=== PATIENT | male | born 1980 | race Caucasian/White ===

== ENCOUNTER 2018-06-20 08:37 | Inpatient (IN) | payer OTHER ==
[~2018-06-20] VITALS: Ht 167.6 cm; Wt 72.2 kg
[2018-06-20] VITALS (35 sets, daily range): BP systolic 100–123; BP diastolic 59–82; PULSE 65–87; TEMP 36.4–36.9; O2SAT 95–100; Ht 167.6 cm; Wt 72.2 kg
[2018-06-20] MEDS ORDERED: SODIUM CHLORIDE 0.9% 1000ML 1,000 ML IV STA (08:51)
[2018-06-20] MEDS ORDERED: PANTOprazole INJ 40 MG in DEXTROSE 5% 100ML IV SCH (09:30)
[2018-06-20] MEDS ORDERED: PANTOprazole INJ 80 MG in DEXTROSE 5% 100ML IV ONE (09:30)
[2018-06-20 09:33] LABS: ISTAT CREATININE 0.5 mg/dl (0.6-1.3); ISTAT IONIZED CALCIUM 1.18 mmol/l (1.12-1.32); ISTAT POTASSIUM 3.8 mEq/L (3.3-5.0)
[2018-06-20 09:46] LABS: INR 1.1 (0.9-1.1)
[2018-06-20 09:47] LABS: PTT PATIENT 19.1 SECONDS (21.0-31.0)
[2018-06-20 09:48] LABS: HEMOGLOBIN 3.9 g/dL (14.0-18.0); MEAN CELL VOLUME 57.3 fL (80-100); MEAN CORPUSCULAR HGB CONC 24.4 g/dl (32-36); PLATELET COUNT 439 K/uL (130-400); WHITE BLOOD COUNT 6.34 K/uL (4.8-10.8)
[2018-06-20 10:05] LABS: ALBUMIN 3.5 gm/dl (3.4-5.0); ALKALINE PHOSPHATASE 105 U/L (45-117); ALT/SGPT 13 U/L (12-78); AST/SGOT 9 U/L (15-37); BLOOD UREA NITROGEN 13 mg/dl (7-18); CALCIUM 8.2 mg/dl (8.5-10.1); CARBON DIOXIDE 23 mmol/L (21-32); CKMB < 1.0 ng/ml (0.5-3.6); CREATININE 0.59 mg/dl (0.60-1.40); GLUCOSE 81 mg/dl (70-99); LIPASE 73 U/L (73-393); POTASSIUM 3.7 mmol/L (3.5-5.1); SODIUM 140 mmol/L (136-145); TOTAL PROTEIN 7.2 gm/dl (6.4-8.2)
[2018-06-20] MEDS ORDERED: ONDANSETRON INJ 2 MG/ML 2 ML VIAL IV PRN (10:45)
[2018-06-20] MEDS ORDERED: POLYETHYLENE (MIRALAX) 17 GM PACK PO PRN (10:45)
[2018-06-20 10:50] LABS: BASO % 1.6 %; EOS % 9.8 %; EOS ABS # 0.62 K/uL (0-0.5); IG# 0.05 K/uL (0.00-0.02); LYMPH % 23.7 %; MONO % 7.9 %; NEUT % 56.2 %; NEUT ABS # 3.57 K/uL (1.4-6.5)
--- NOTE | 2018-06-20 11:06 | History and Physical ---
History & Physical Date & Time of Service: Jun 20, 2018 at 10:57 Chief Complaint: Gi Assessment Primary Care Physician: Isaías HA History of Present Illness Source: patient, hospital records 37 yo male with history of GI bleed in 2016 and psychiatric issues, currently incarcerated at [facility], presents to the ED with weakness, palor, Hb noted to be 3.9. Patient admits to about one week of melanotic stools, 1-2 times a day, stools more loose. Denies any abdominal pain. Prior to one week ago, he was having normal stools. Denies any vomiting, specifically denies hematemesis. In 2016 he said that he had melena and anemia requiring transfusion. The patient was supposed to get an EGD and colonoscopy but he went to custodial and never got follow up. Patient's vital signs were reasonable given how low his Hb was, HR in the 80's, blood pressure 100's systolic but then dipped down to 89 systolic. No symptoms such as light headedness. Patient said that he was taking Depakote and BuSpar for the past year but those medications were tapered off about one week ago. Not taking NSAIDs, no alcohol abuse since he is incarcerated. Past Medical/Surgical History Medical Problems: (1) Acute blood loss anemia (2) GI bleed (3) GI bleed Family History Mother - from throat cancer, she was a smoker Father - alive with diabetes Social History Smoking Status: Current Every Day Smoker Smokeless Tobacco Use: No Alcohol Use: none Drug Use: none Housing status: other (incarcerated) Allergies Coded Allergies: Penicillin G Benzathine (Unverified Allergy, Intermediate, , 06/20/18) Home Medications No Active Prescriptions or Reported Meds Review of Systems Constitutional: + weakness, + fatigue, No fever, No chills, No sweats, No weight loss Eyes: No worsening of vision, No eye pain, No redness, No discharge, No diplopia, No problem reported ENT: No hearing loss, No unusual epistaxis, No nasal symptoms, No sore throat, No tinnitus, No dental problems, No trouble swallowing, No problem reported Respiratory: No cough, No sputum, No wheezing, No shortness of breath, No dyspnea on exertion, No dyspnea at rest, No hemoptysis, No problem reported Cardiovascular: No chest pain, No orthopnea, No PND, No edema, No claudication , No palpitations, No problem reported Abdomen: + GI bleeding (melena 1-2x a day), No pain, No nausea, No vomiting, No diarrhea, No constipation, No problem reported Genitourinary - Male: No hematuria, No dysuria, No urinary frequency, No urinary urgency, No urinary hesitancy, No urinary retention, No urinary incontinence, No penile discharge, No lesions, No impotence, No problem reported Neurologic: No memory loss, No paralysis, No weakness, No numbness/tingling, No vertigo, No balance problems, No problem reported Psychiatric: No depression symptoms, No anhedonism, No anxiety, No insomnia, No substance abuse, No problem reported Endocrine: + fatigue, No excessive thirst, No excessive urination, No problem reported Hematologic / Lymphatic: No abnormal bleeding/bruising, No clotting problems, No swollen lymph nodes, No night sweats, No problem reported Integumentary: + color change (palor), No rash, No itch, No new/changing skin lesions, No bleeding, No problem reported Allergic / Immunologic: No environmental allergies, No seasonal allergies, No pet sensitivities, No food allergies, No hives, No frequent infections, No poor healing, No prolonged convalescence, No problem reported Physical Exam Vital Signs Date Time Temp Pulse Resp B/P (MAP) Pulse Ox O2 Delivery O2 Flow Rate FiO2 06/20/18 10:44 36.9 76 18 113/73 100 06/20/18 09:30 79 16 102/69 06/20/18 09:27 98 Room Air 06/20/18 08:54 83 06/20/18 08:51 36.8 85 16 103/68 100 Room Air General Appearance: WD/WN, no apparent distress Head: normocephalic, atraumatic Eyes: normal inspection, EOMI, sclerae normal, + pertinent finding (pale conjunctiva) ENT: normal ENT inspection, hearing grossly normal, pharynx normal Neck: supple, no adenopathy, no JVD, trachea midline Respiratory/Chest: chest non-tender, lungs clear, normal breath sounds, no respiratory distress, no accessory muscle use Cardiovascular: regular rate, rhythm, no edema, no gallop, no JVD, no murmur, normal peripheral pulses Abdomen/GI: normal bowel sounds, non tender, soft, no organomegaly Back: normal inspection, no CVA tenderness, no muscle spasm, normal range of motion Extremities/Musculoskelatal: normal inspection, no calf tenderness, normal capillary refill, no pedal edema, normal range of motion, pelvis stable 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, no motor/sensory deficits, alert, normal mood/affect, normal reflexes, oriented x 3 Skin: warm/dry, no rash, + pallor Lymphatic: no adenopathy Diagnostics Laboratory Results Results Past 24 Hours Test 06/20/18 09:13 06/20/18 09:18 Range/Units White Blood Count 6.34 4.8-10.8 K/uL Red Blood Count 2.79 4.7-6.1 M/uL Hemoglobin 3.9 14.0-18.0 g/dL Hematocrit 16.0 42-52 % Mean Corpuscular Volume 57.3 80-100 fL Mean Corpuscular Hemoglobin 14.0 25-34 pg Mean Corpuscular Hemoglobin Concent 24.4 32-36 g/dl Platelet Count 439 130-400 K/uL Neutrophils (%) (Auto) 56.2 % Lymphocytes (%) (Auto) 23.7 % Monocytes (%) (Auto) 7.9 % Eosinophils (%) (Auto) 9.8 % Basophils (%) (Auto) 1.6 % Neutrophils # (Auto) 3.57 1.4-6.5 K/uL Lymphocytes # (Auto) 1.50 1.2-3.4 K/uL Monocytes # (Auto) 0.50 0.11-0.59 K/uL Eosinophils # (Auto) 0.62 0-0.5 K/uL Basophils # (Auto) 0.10 0-0.2 K/uL Immature Granulocyte % (Auto) 0.8 % Immature Granulocyte # (Auto) 0.05 0.00-0.02 K/uL Giant Platelets 1+ Hypochromasia PRESENT Anisocytosis PRESENT Microcytosis PRESENT Ovalocytes 1+ Prothrombin Time 11.3 9.0-12.0 SECONDS Prothromb Time International Ratio 1.1 0.9-1.1 Activated Partial Thromboplast Time 19.1 21.0-31.0 SECONDS Partial Thromboplastin Ratio 0.7 Sodium Level 140 136-145 mmol/L Potassium Level 3.7 3.5-5.1 mmol/L Chloride Level 109 98-107 mmol/L Carbon Dioxide Level 23 21-32 mmol/L Anion Gap 8.0 17.0 16-25 mmol/L Blood Urea Nitrogen 13 7-18 mg/dl Creatinine 0.59 0.60-1.40 mg/dl Est Creatinine Clear Calc Drug Dose 151.6 ml/min Estimated GFR () 147.8 Estimated GFR (Non- 127.5 BUN/Creatinine Ratio 22.2 10-20 Random Glucose 81 70-99 mg/dl Calcium Level 8.2 8.5-10.1 mg/dl Total Bilirubin 0.3 0.2-1 mg/dl Direct Bilirubin 0.1 0-0.2 mg/dl Aspartate Amino Transf (AST/SGOT) 9 15-37 U/L Alanine Aminotransferase (ALT/SGPT) 13 12-78 U/L Alkaline Phosphatase 105 45-117 U/L Total Creatine Kinase 27 39-308 U/L Creatine Kinase MB < 1.0 0.5-3.6 ng/ml Creatine Kinase MB Ratio 0-3.0 Troponin I < 0.015 0-0.045 ng/ml Total Protein 7.2 6.4-8.2 gm/dl Albumin 3.5 3.4-5.0 gm/dl Lipase 73 73-393 U/L Bedside Hemoglobin 5.4 14.0-18.0 g/dl Bedside Hematocrit 16 42-52 % Bedside Sodium 142 135-144 mEq/L Bedside Potassium 3.8 3.3-5.0 mEq/L Bedside Chloride 106 101-112 mEq/L Bedside Total CO2 23 24-31 mEq/l Bedside Blood Urea Nitrogen 12 7-18 mg/dl Bedside Creatinine 0.5 0.6-1.3 mg/dl Bedside Glucose (other) 85 70-99 mg/dl Bedside Ionized Calcium (Rojas) 1.18 1.12-1.32 mmol/l Normal EKG Impression Assessment and Plan 37 yo male with GI bleed, acute blood loss anemia - GI bleed with acute blood loss anemia hb 3.9, likely slow bleed since his HR is in 80's and BP preserved will transfuse 3 units PRBC's now Protonix drip strict NPO ED discussed with Dr. King, planning for scope this afternoon admit to telemetry - DVT prophylaxis: SCD due to bleed - Unknown psychiatric issues: was recently taken off of Depakote and Ray 35 minutes spent on admission Resuscitation Status full code VTE Prophylaxis Will order VTE Prophylaxis: Yes Reason for no VTE drug order: Contraindicated Additional Copies To Isaías HA
--- NOTE | 2018-06-20 11:07 | EMERGENCY ROOM VISIT NOTE ---
History Report prepared by Yahaira: Daniela Mattson Under the Supervision of: Dr. Daniel Alvarado M.D. First contact with patient: 08:39 Chief Complaint: GI ASSESSMENT Stated Complaint: GI ASSESSMENT Nursing Triage Summary: pt here with bloody stools x one week. pt denies any abd pains. pt is a very pale. hemoglobin was checked in january of this year and it was 8, not checked since. pt c/o headache History of Present Illness The patient is a 37 year old male who presents to the Emergency Room with complaints of persistent dark tarry stools starting 1 week ago. The patient presents to the ED by EMS from senior care. He has a history of GI bleed 2 years ago and required a transfusion. He has been feeling weak for a couple days. He felt nauseous today while standing. He has not had a scope before. Source of History: patient Onset: 1 week ago Position: other (rectal) Quality: other (dark tarry stool) Timing: other (persistent) Associated Symptoms: + nausea, + weakness Review of Systems See HPI for pertinent positives & negatives. A total of 10 systems reviewed and were otherwise negative. Past Medical & Surgical Medical Problems: (1) Acute blood loss anemia (2) GI bleed (3) GI bleed Family History No pertinent family history stated Social History Smoking Status: Current Every Day Smoker Housing Status: other (senior care) Current/Historical Medications No Active Prescriptions or Reported Meds Allergies Coded Allergies: Penicillin G Benzathine (Unverified Allergy, Intermediate, , 06/20/18) Physical Exam Vital Signs Date Time Temp Pulse Resp B/P (MAP) Pulse Ox O2 Delivery O2 Flow Rate FiO2 06/20/18 09:30 79 16 102/69 06/20/18 09:27 98 Room Air 06/20/18 08:54 83 06/20/18 08:51 36.8 85 16 103/68 100 Room Air Physical Exam GENERAL: Awake, alert, pale-appearing, in no acute distress HENT: Normocephalic, atraumatic. Oropharynx unremarkable. EYES: Normal conjunctiva. Sclera non-icteric. NECK: Supple. No nuchal rigidity. FROM. No JVD. RESPIRATORY: Clear to auscultation. CARDIAC: Regular rate, normal rhythm. Extremities warm and well perfused. Pulses equal. ABDOMEN: Soft, non-distended. No tenderness to palpation. No rebound or guarding. No masses. RECTAL: Black tarry, heme positive. MUSCULOSKELETAL: Chest examination reveals no tenderness. The back is symmetrical on inspection without obvious abnormality. There is no CVA tenderness to palpation. No joint edema. LOWER EXTREMITIES: Calves are equal size bilaterally and non-tender. No edema. No discoloration. NEURO: Normal sensorium. No sensory or motor deficits noted. SKIN: No rash or jaundice noted. Medical Decision & Procedures Laboratory Results 06/20/18 09:13 Red Blood Count 2.79, Mean Corpuscular Volume 57.3, Mean Corpuscular Hemoglobin 14.0, Mean Corpuscular Hemoglobin Concent 24.4, Neutrophils (%) (Auto) 56.2, Lymphocytes (%) (Auto) 23.7, Monocytes (%) (Auto) 7.9, Eosinophils (%) (Auto) 9.8, Basophils (%) (Auto) 1.6, Neutrophils # (Auto) 3.57, Lymphocytes # (Auto) 1.50, Monocytes # (Auto) 0.50, Eosinophils # (Auto) 0.62, Basophils # (Auto) 0.10 06/20/18 09:13 Test 06/20/18 09:13 06/20/18 09:18 White Blood Count 6.34 K/uL (4.8-10.8) Red Blood Count 2.79 M/uL (4.7-6.1) Hemoglobin 3.9 g/dL (14.0-18.0) Hematocrit 16.0 % (42-52) Mean Corpuscular Volume 57.3 fL (80-100) Mean Corpuscular Hemoglobin 14.0 pg (25-34) Mean Corpuscular Hemoglobin Concent 24.4 g/dl (32-36) Platelet Count 439 K/uL (130-400) Neutrophils (%) (Auto) 56.2 % Lymphocytes (%) (Auto) 23.7 % Monocytes (%) (Auto) 7.9 % Eosinophils (%) (Auto) 9.8 % Basophils (%) (Auto) 1.6 % Neutrophils # (Auto) 3.57 K/uL (1.4-6.5) Lymphocytes # (Auto) 1.50 K/uL (1.2-3.4) Monocytes # (Auto) 0.50 K/uL (0.11-0.59) Eosinophils # (Auto) 0.62 K/uL (0-0.5) Basophils # (Auto) 0.10 K/uL (0-0.2) Immature Granulocyte % (Auto) 0.8 % Immature Granulocyte # (Auto) 0.05 K/uL (0.00-0.02) Giant Platelets 1+ Hypochromasia PRESENT Anisocytosis PRESENT Microcytosis PRESENT Ovalocytes 1+ Prothrombin Time 11.3 SECONDS (9.0-12.0) Prothromb Time International Ratio 1.1 (0.9-1.1) Activated Partial Thromboplast Time 19.1 SECONDS (21.0-31.0) Partial Thromboplastin Ratio 0.7 Est Creatinine Clear Calc Drug Dose 151.6 ml/min Estimated GFR () 147.8 Estimated GFR (Non- 127.5 BUN/Creatinine Ratio 22.2 (10-20) Calcium Level 8.2 mg/dl (8.5-10.1) Total Bilirubin 0.3 mg/dl (0.2-1) Direct Bilirubin 0.1 mg/dl (0-0.2) Aspartate Amino Transf (AST/SGOT) 9 U/L (15-37) Alanine Aminotransferase (ALT/SGPT) 13 U/L (12-78) Alkaline Phosphatase 105 U/L (45-117) Total Creatine Kinase 27 U/L (39-308) Creatine Kinase MB < 1.0 ng/ml (0.5-3.6) Creatine Kinase MB Ratio (0-3.0) Troponin I < 0.015 ng/ml (0-0.045) Total Protein 7.2 gm/dl (6.4-8.2) Albumin 3.5 gm/dl (3.4-5.0) Lipase 73 U/L (73-393) Bedside Hemoglobin 5.4 g/dl (14.0-18.0) Bedside Hematocrit 16 % (42-52) Bedside Sodium 142 mEq/L (135-144) Bedside Potassium 3.8 mEq/L (3.3-5.0) Bedside Chloride 106 mEq/L (101-112) Bedside Total CO2 23 mEq/l (24-31) Anion Gap 17.0 mmol/L (16-25) Bedside Blood Urea Nitrogen 12 mg/dl (7-18) Bedside Creatinine 0.5 mg/dl (0.6-1.3) Bedside Glucose (other) 85 mg/dl (70-99) Bedside Ionized Calcium (Rojas) 1.18 mmol/l (1.12-1.32) Labs reviewed by ED physician. Medications Administered Medications (Trade) Dose Ordered Sig/Angelita Route Start Time Stop Time Status Last Admin Dose Admin Sodium Chloride 1,000 ml @ 999 mls/hr Q1H1M STAT IV 06/20/18 08:51 06/20/18 09:51 DC 06/20/18 09:00 999 MLS/HR Pantoprazole Sodium 80 mg/ Dextrose 120 ml @ 480 mls/hr NOW ONCE IV 06/20/18 09:30 06/20/18 09:44 DC 06/20/18 10:49 480 MLS/HR Pantoprazole Sodium 40 mg/ Dextrose 100 ml @ 20 mls/hr Q5H IV 06/20/18 09:30 06/20/18 14:29 DC 06/20/18 11:09 20 MLS/HR ECG Per My Interpretation Indication: weakness Rate (beats per minute): 78 Rhythm: normal sinus Findings: other (normal axis, normal intervals, no ST elevation or depression) ED Course 0853: Past medical records reviewed. The patient was evaluated in room B7. A complete history and physical examination was performed. 0933: I discussed the patient's case with Dr. King, [facility]. He will plan to scope the patient today. 1027: I discussed the patient's case with Dr. Bosch, [facility] hospitalist, he has agreed to evaluate the patient for further management and care. 1030: Upon reexamination the patient is stable. I discussed results and treatment plan with the patient. He verbalizes agreement and understanding. The patient will be evaluated for further management. Medical Decision Differential diagnosis: Etiologies such as diverticulosis, AVM, coagulopathy, colitis, inflammatory bowel disease, malignancy, Shanda-Gorman tear, esophagitis, peptic ulcer disease , variceal bleed, gastritis, epistaxis, fissure, hemorrhoids, as well as others were entertained. This is a 37-year-old prisoner who presents the emergency department with weakness and hypotension. The patient was given a normal saline bolus here in the emergency department. He is heme positive on physical examination. Based on these findings the patient was given 2 units of packed red blood cells. His hemoglobin was found to be 5. He was started on a Protonix bolus and drip. I did discuss the case with gastroenterology as well as the medicine service who agreed to admit the patient. Patient signed blood consent and it was placed on the chart. Medication Reconcilliation Current Medication List: was personally reviewed by me Blood Pressure Screening Patient's blood pressure: Normal blood pressure Consults Time Called: [phone] Consulting Physician: Dr. King, [facility] Returned Call: [phone] I discussed the patient's case with him. He will plan to scope the patient today. Additional Consults: Time Called: 1025 Consulted Physician: Dr. Bosch, [facility] hospitalist Returned Call: [phone] Additional Comments: I discussed the patient's case with him, he has agreed to evaluate the patient for further management and care. Impression Primary Impression: GI bleed Critical Care I have personally spent greater than 30 minutes of critical care time in the direct management of this patient. This includes bedside care, interpretation of diagnostic studies, and testing, discussion with consultants, patient, and family members, and other required patient management activities. This 30 minutes is in excess of all separately billable procedures. Scribe Attestation The scribe's documentation has been prepared under my direction and personally reviewed by me in its entirety. I confirm that the note above accurately reflects all work, treatment, procedures, and medical decision making performed by me. Departure Information Dispostion Being Evaluated By Hospitalist Prescriptions No Active Prescriptions or Reported Meds [facility] Patient Instructions My [facility] Problem Qualifiers Primary Impression: GI bleed GI bleed type/associated pathology: unspecified gastrointestinal hemorrhage type Qualified Codes: K92.2 - Gastrointestinal hemorrhage, unspecified
--- NOTE | 2018-06-20 16:31 | GASTROINTESTINAL CONSULTATION ---
DATE OF CONSULTATION: 06/20/2018 REASON FOR EVALUATION: Severe anemia and melena. HISTORY OF PRESENT ILLNESS: The patient is a 37-year-old senior care inmate at [facility] who began noticing black tarry stools a week ago. He was feeling a little bit of nausea today and a little bit of lightheadedness and was referred to the Emergency Room for evaluation where he was found to have a hemoglobin of 5.4 with microcytic indices of 57.3. Stool was tarry and heme positive on exam. He was referred for admission for further evaluation. The patient denies use of aspirin or nonsteroidals, although he did take some Motrin for a very limited time after dental procedure a few weeks ago. He does take Tylenol occasionally. He did have a previous history of some anemia 2 years ago but was incarcerated before and evaluation was completed. He reports no nausea or vomiting. His appetite is slightly diminished. He is having no abdominal pain. PAST MEDICAL HISTORY: Remarkable for anemia 2 years ago that was not completely worked up. MEDICATIONS: Depakote, BuSpar and Vistaril, which were stopped approximately a week ago when their prescription ran out. This is for mood stabilization. ALLERGIES: PENICILLIN, reactions unknown. FAMILY HISTORY: Negative for any GI diseases. Mother of throat cancer and was a smoker. Father is alive and has diabetes. SOCIAL HISTORY: The patient smokes daily. No alcohol, no recreational drugs. He is a senior care inmate at [facility]. REVIEW OF SYSTEMS: Remarkable for some weakness and fatigue. The remainder is negative. PHYSICAL EXAMINATION: GENERAL: The patient is pale, but in no acute distress. VITAL SIGNS: Blood pressure is 113/73, pulse 76, O2 saturation 100% on room air. Pharynx is clear. NECK: Showed no thyromegaly. Trachea is midline. ABDOMEN: Soft. There are no masses, tenderness, or hepatosplenomegaly. IMPRESSION: The patient has profound microcytic anemia with some dark stools over the last week. I suspect this has been going on longer than a week based on the microcytic indices. The patient will be given IV Protonix and blood transfusions to stabilize him and will prep him overnight and proceed with an EGD and colonoscopy tomorrow afternoon.
[2018-06-20] MEDS: PANTOprazole INJ 40 MG in DEXTROSE 5% 100ML IV SCH ×3 (17:16→23:40)
[2018-06-20] MEDS: LAVAGE SOLUTION 4000ML PO SCH (17:47)
[2018-06-20 20:44] LABS: HEMATOCRIT 27.3 % (42-52); HEMOGLOBIN 7.8 g/dL (14.0-18.0)
[2018-06-21] VITALS (9 sets, daily range): BP systolic 92–129; BP diastolic 67–102; PULSE 57–86; TEMP 36.5–36.9; O2SAT 95–100
[2018-06-21] MEDS: PANTOprazole INJ 40 MG in DEXTROSE 5% 100ML IV SCH ×4 (05:16→21:15)
[2018-06-21 05:44] LABS: HEMOGLOBIN 7.2 g/dL (14.0-18.0)
[2018-06-21] MEDS: LAVAGE SOLUTION 4000ML PO SCH (05:56)
--- NOTE | 2018-06-21 13:47 | Progress Note ---
Subjective Date of Service: Jun 21, 2018. Subjective Pt evaluation today including: conversation w/ patient, physical exam, lab review, conversation w/ [employer] security consultant, review of inpatient medication list Pain: no pain PO Intake: npo Voiding: no voiding problems reviewed labs, Hb was 7.8 yesterday after 3 units of PRBC, down to 7.2 this morning transfused one more unit tolerating bowel prep, stools clearing up plan for EGD and colonoscopy this afternoon Review of Systems All Other Systems: Reviewed and Negative Medications Current Inpatient Medications Medications (Trade) Dose Ordered Sig/Angelita Route Start Time Stop Time Status Last Admin Dose Admin Ondansetron HCl (Zofran Inj) 4 mg Q6H PRN IV 06/20/18 10:45 07/20/18 10:44 Polyethylene (Miralax Powder Packet) 17 gm DAILY PRN PO 06/20/18 10:45 07/20/18 10:44 Pantoprazole Sodium 40 mg/ Dextrose 100 ml @ 20 mls/hr Q5H IV 06/20/18 14:30 07/20/18 14:29 06/21/18 11:51 20 MLS/HR Objective Vital Signs Date Time Temp Pulse Resp B/P (MAP) Pulse Ox O2 Delivery O2 Flow Rate FiO2 06/21/18 11:45 36.7 57 14 121/82 98 06/21/18 10:45 36.7 86 17 116/69 99 06/21/18 10:15 36.8 65 16 108/67 99 06/21/18 10:02 36.8 64 18 100/74 98 06/21/18 08:00 Room Air 06/21/18 07:15 36.7 61 18 104/72 (83) 98 Room Air 06/21/18 04:25 36.9 75 16 92/71 (78) 95 Room Air 06/20/18 23:40 36.8 79 18 114/74 (87) 95 Room Air 06/20/18 19:39 98 Room Air 06/20/18 19:10 36.5 78 19 122/81 (95) 95 Room Air 06/20/18 18:25 36.9 82 20 118/74 96 06/20/18 18:04 122/79 (109) 06/20/18 17:48 76 19 117/80 (87) 99 06/20/18 17:33 75 18 123/70 (78) 99 7/24/18 17:18 78 19 115/77 (93) 100 06/20/18 17:03 87 21 122/81 (97) 97 06/20/18 16:48 79 21 110/82 (86) 99 06/20/18 16:48 79 21 110/82 (86) 99 06/20/18 16:33 81 17 116/79 (87) 99 06/20/18 16:19 36.9 79 16 109/78 100 06/20/18 16:18 82 24 109/78 (82) 06/20/18 16:10 82 17 120/75 (101) 100 06/20/18 16:09 36.8 77 16 120/75 100 06/20/18 16:03 82 21 113/77 (88) 99 06/20/18 15:48 74 17 108/78 (89) 99 06/20/18 15:33 73 17 108/76 (83) 99 06/20/18 15:24 72 19 110/72 (92) 98 06/20/18 15:18 78 16 111/74 (82) 100 06/20/18 15:03 65 14 104/72 (77) 98 06/20/18 14:48 75 16 107/71 (82) 100 06/20/18 14:34 73 19 104/73 (84) 99 06/20/18 14:04 79 20 110/70 (89) 100 06/20/18 13:48 87 19 116/72 (90) 98 Physical Exam General Appearance: WD/WN, no apparent distress Eyes: normal inspection, EOMI, sclerae normal ENT: normal ENT inspection, hearing grossly normal, pharynx normal Neck: supple, no adenopathy, no JVD, trachea midline Respiratory/Chest: chest non-tender, lungs clear, normal breath sounds, no respiratory distress, no accessory muscle use Cardiovascular: regular rate, rhythm, no edema, no gallop, no JVD, no murmur Abdomen: normal bowel sounds, non tender, soft, no organomegaly Extremities: normal range of motion, non-tender, normal inspection, no pedal edema, no calf tenderness, pelvis stable 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, no motor/sensory deficits, alert, normal mood/affect, oriented x 3 Laboratory Results Last 24 Hours Test 06/20/18 15:24 06/20/18 19:42 06/21/18 05:12 Urine Color YELLOW Urine Appearance CLEAR Urine pH 8.0 Urine Specific [place] 1.011 Urine Protein NEG Urine Glucose (UA) NEG Urine Ketones NEG Urine Occult Blood NEG Urine Nitrite NEG Urine Bilirubin NEG Urine Urobilinogen NEG Urine Leukocyte Esterase NEG Hemoglobin 7.8 g/dL 7.2 g/dL Hematocrit 27.3 % 25.0 % Assessment and Plan 37 yo male with GI bleed, acute blood loss anemia - GI bleed with acute blood loss anemia hb 3.9 on admission, up to 7.2 this morning after 3 units PRBC's transfuse a 4th unit this morning Protonix drip strict NPO plan for EGD and colonoscopy this afternoon with Dr. King - DVT prophylaxis: SCD due to bleed - Unknown psychiatric issues: was recently taken off of Depakote and BuSpar mood is stable likely for d/c tomorrow AM, check labs in the AM
--- NOTE | 2018-06-21 15:17 | Endo History and Physical ---
History & Physical Date of Service: Jun 21, 2018. Chief Complaint: anemia Referring Physician: Dr Bosch History of Present Illness For EGD and colonoscopy Past Surgical History Hx Cardiac Surgery: No Hx Abdominal Surgery: No (L/R ingiual hernia) Hx Post-Op Nausea and Vomiting: No Hx Cancer Surgery: No Hx Thoracic Surgery: No Hx Orthopedic: No Hx Urinary Tract Surgery: No Social History Smoking Status: Current Every Day Smoker Smokeless Tobacco Use: No Hx Substance Use: No Hx Alcohol Use: No Allergies Coded Allergies: Penicillin G Benzathine (Unverified Allergy, Intermediate, , 06/20/18) Current Medications Reported Home Medications Medications Dose Route/Sig Max Daily Dose Days Date Category No Active Prescriptions or Reported Medications Rx Vital Signs Weight (Kilograms): 72.200 Height (Feet): 5 Height (Inches): 6.00 Date Time Temp Pulse Resp B/P (MAP) Pulse Ox O2 Delivery O2 Flow Rate FiO2 06/21/18 11:45 36.7 57 14 121/82 98 06/21/18 10:45 36.7 86 17 116/69 99 06/21/18 10:15 36.8 65 16 108/67 99 06/21/18 10:02 36.8 64 18 100/74 98 06/21/18 08:00 Room Air 06/21/18 07:15 36.7 61 18 104/72 (83) 98 Room Air 06/21/18 04:25 36.9 75 16 92/71 (78) 95 Room Air 06/20/18 23:40 36.8 79 18 114/74 (87) 95 Room Air 06/20/18 19:39 98 Room Air 06/20/18 19:10 36.5 78 19 122/81 (95) 95 Room Air 06/20/18 18:25 36.9 82 20 118/74 96 06/20/18 18:04 122/79 (109) 06/20/18 17:48 76 19 117/80 (87) 99 06/20/18 17:33 75 18 123/70 (78) 99 06/20/18 17:18 78 19 115/77 (93) 100 06/20/18 17:03 87 21 122/81 (97) 97 06/20/18 16:48 79 21 110/82 (86) 99 06/20/18 16:48 79 21 110/82 (86) 99 18 16:33 81 17 116/79 (87) 99 18 16:19 36.9 79 16 109/78 100 18 16:18 82 24 109/78 (82) 18 16:10 82 17 120/75 (101) 100 06/20/18 16:09 36.8 77 16 120/75 100 06/20/18 16:03 82 21 113/77 (88) 99 06/20/18 15:48 74 17 108/78 (89) 99 18 15:33 73 17 108/76 (83) 99 18 15:24 72 19 110/72 (92) 98 06/20/18 15:18 78 16 111/74 (82) 100 Physical Exam General Appearance: WD/WN Respiratory/Chest: Respiratory effort: no dyspnea Cardiovascular: Heart Auscultation: RRR Abdomen: Inspection & Palpation: soft Assessment and Plan Anemia for EGD and colonoscopy
--- NOTE | 2018-06-21 15:56 | Discharge Instructions ---
Endoscopy Patient Instructions Date / Procedure(s) Performed Jun 21, 2018. Colonoscopy, EGD Allergy Information Coded Allergies: Penicillin G Benzathine (Unverified Allergy, Intermediate, , 06/20/18) Discharge Date / Findings Jun 21, 2018. Large Hiatal hernia, hemorrhoids Medication Instructions Restart Stopped Medication(s): resume meds Current Inpatient Medications Medications (Trade) Dose Ordered Sig/Angelita Route Start Time Stop Time Status Last Admin Dose Admin Ondansetron HCl (Zofran Inj) 4 mg Q6H PRN IV 06/20/18 10:45 07/20/18 10:44 Polyethylene (Miralax Powder Packet) 17 gm DAILY PRN PO 06/20/18 10:45 07/20/18 10:44 Pantoprazole Sodium 40 mg/ Dextrose 100 ml @ 20 mls/hr Q5H IV 06/20/18 14:30 07/20/18 14:29 06/21/18 11:51 20 MLS/HR Provider Instructions Activity Restrictions - No exercising or heavy lifting for 24 hours. - Do not drink alcohol the day of the procedure. - Do not drive a car or operate machinery until the day after the procedure. - Do not make any important decisions or sign important papers in 24 hours after the procedure. Following Day: - Return to full activity which may include returning to work/school. Diet Start your diet with liquids and light foods (jello, soup, juice, toast). Then eat your usual diet if not nauseated. Treatment For Common After Affects For mild abdominal pain, bloating, or excessive gas: - Rest - Eat lightly - Lie on right side Follow-Up Information Follow-up with as scheduled Anesthesia Information What You Should Know You have had a procedure that required some medicine to reduce anxiety and discomfort. This treatment is called moderate sedation. After receiving the treatment, you may be sleepy, but you will be able to breathe on your own. The effects of the treatment may last for several hours. Follow these instructions along with Activity/Diet recommendations noted above: * Do NOT do anything where dizziness or clumsiness would be dangerous. * Rest quietly at home today, then you can be up and about tomorrow. * Have a responsible person stay with you the rest of today. * You may have had an I.V. today. If so, you may take the dressing off later today. Recommendations Call your doctor if: * Trouble breathing * Continuous vomiting for more than 24 hours * Temperature above 101 degrees * Severe abdominal pain or bloating * Pain not relieved by pain medicine ordered * There is increased drainage or redness from any incision * A large amount of rectal bleeding greater than 2-3 tablespoons. (If you had a polyp/s removed or have hemorrhoids, a small amount of blood - from the rectum is to be expected.) * You have any unanswered questions or concerns. IN THE EVENT OF A SERIOUS EMERGENCY, GO TO THE NEAREST EMERGENCY ROOM Your discharge instructions were prepared by provider Donald King. Patient Instructions Signature Page Feroz Roland Edward Patient (or Guardian) Signature/Date: I have read and understand the instructions given to me by my caregivers. Caregiver/RN/Doctor Signature/Date: The above-named patient and/or guardian has received patient instructions on this date. + Original Patient Signature Page (only) stays with chart. Please make copy for patient.
[2018-06-21] MEDS ORDERED: LIDOCAINE HCL 2% 2 ML VIAL (20MG/ML) ONE (15:57)
[2018-06-21] MEDS ORDERED: PROPOFOL IV EMULSION 10 MG/ML 20 ML VIAL ONE (15:57)
--- NOTE | 2018-06-21 16:14 | Anesthesiology Progress Note ---
Anesthesia Post Op Note Date & Time Jun 21, 2018 at 16:14 Vital Signs Pain Intensity: 0.0 Vital Signs Past 12 Hours Date Time Temp Pulse Resp B/P (MAP) Pulse Ox O2 Delivery O2 Flow Rate FiO2 06/21/18 16:02 36.7 73 16 93/60 (71) 98 Room Air 06/21/18 15:17 37 69 20 117/84 (95) 94 Room Air 06/21/18 11:45 36.7 57 14 121/82 98 06/21/18 10:45 36.7 86 17 116/69 99 06/21/18 10:15 36.8 65 16 108/67 99 06/21/18 10:02 36.8 64 18 100/74 98 06/21/18 08:00 Room Air 06/21/18 07:15 36.7 61 18 104/72 (83) 98 Room Air 06/21/18 04:25 36.9 75 16 92/71 (78) 95 Room Air Notes Mental Status: alert / awake / arousable, participated in evaluation Pt Amnestic to Procedure: Yes Nausea / Vomiting: adequately controlled Pain: adequately controlled Airway Patency, RR, SpO2: stable & adequate BP & HR: stable & adequate Hydration State: stable & adequate Anesthetic Complications: no major complications apparent
--- NOTE | 2018-06-21 16:32 | PROGRESS NOTE ---
DATE: 06/21/2018 SUBJECTIVE: Patient underwent EGD and colonoscopy today for severe profound anemia. Patient yesterday was transfused 4 units of blood. His hemoglobin went from 3.9-7.2. He has had no further overt bleeding. His upper endoscopy was remarkable for a significantly large hiatal hernia. There were no Ab ulcers seen, however and no other source of blood loss identified on the upper endoscopy. Small bowel biopsies were obtained to rule out celiac disease and malabsorption. His colonoscopy was carried into the terminal ileum. The colon and terminal ileum were all normal. There was no visible blood anywhere throughout the small or large intestine. He did have mild internal hemorrhoids identified at the time of the exam. 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 It is possible that his hiatal hernia may be contributing to this. PLAN: Plan is getting an upper GI to further define the anatomy. In addition, we will await his small bowel biopsies to make sure he does not have a malabsorptive disease. We may also consider an outpatient small bowel video capsule procedure to look through the small intestine for potential source of blood loss. If these are negative, then repair of the hiatal hernia may be a consideration.
[2018-06-22 00:14] VITALS: BP 110/70; PULSE 63; TEMP 36.8; O2SAT 95
[2018-06-22] MEDS: PANTOprazole INJ 40 MG in DEXTROSE 5% 100ML IV SCH ×5 (02:37→22:06)
[2018-06-22 07:36] VITALS: BP 117/87; PULSE 65; TEMP 36.8; O2SAT 94
[2018-06-22 07:54] LABS: HEMATOCRIT 28.7 % (42-52); HEMOGLOBIN 8.4 g/dL (14.0-18.0)
--- NOTE | 2018-06-22 10:41 | GI REPORT ---
Patient Name: Feroz Leon Procedure Date: 06/21/2018 3:23 PM Date of : 1980 Admit Type: Inpatient Age: 37 Gender: Male Attending MD: Donald King MD Procedure: Upper GI endoscopy Providers: Donald King MD Referring MD: Kevin Bosch Indications: Iron deficiency anemia secondary to chronic blood loss Medicines: Propofol total dose 430 mg IV, Lidocaine 80 mg IV Complications: No immediate complications. Estimated Blood Loss: Estimated blood loss was minimal. Procedure: Pre-Anesthesia Assessment: - Prior to the procedure, a History and Physical was performed, and patient medications, allergies and sensitivities were reviewed. The patient's tolerance of previous anesthesia was reviewed. - The risks and benefits of the procedure and the sedation options and risks were discussed with the patient. All questions were answered and informed consent was obtained. After obtaining informed consent, the endoscope was passed under direct vision. Throughout the procedure, the patient's blood pressure, pulse, and oxygen saturations were monitored continuously. The On-site loaner was introduced through the mouth, and advanced to the second part of duodenum. The upper GI endoscopy was accomplished without difficulty. The patient tolerated the procedure well. Findings: The Z-line was regular and was found 40 cm from the incisors. A large hiatal hernia was present. The entire examined stomach was normal. The second portion of the duodenum and examined duodenum were normal. Biopsies were taken with a cold forceps for histology. Estimated blood loss was minimal. Impression: - Z-line regular, 40 cm from the incisors. - Large hiatal hernia. - Normal stomach. - Normal second portion of the duodenum and examined duodenum. Biopsied. Recommendation: - [facility] patient [facility]. - Do an upper GI series at the next available appointment. - Resume regular diet today. - Continue present medications. - Await pathology results. Donald King M.D. Donald King MD 06/21/2018 4:01:47 PM This report has been signed electronically. Note Initiated On: 06/21/2018 3:23 PM Number of Addenda: 0 I attest to the content of the Intraoperative Record and orders documented therein, exceptions below {[id number]}
--- NOTE | 2018-06-22 10:41 | GI REPORT ---
Patient Name: Feroz Leon Procedure Date: 06/21/2018 3:22 PM Date of : 1980 Admit Type: Inpatient Age: 37 Gender: Male Attending MD: Donald King MD Procedure: Colonoscopy Providers: Donald King MD Referring MD: Kevin Bosch Indications: Iron deficiency anemia secondary to chronic blood loss Medicines: Propofol total dose 430 mg IV, Lidocaine 80 mg IV Complications: No immediate complications. Estimated Blood Loss: Estimated blood loss: none. Procedure: Pre-Anesthesia Assessment: - Prior to the procedure, a History and Physical was performed, and patient medications, allergies and sensitivities were reviewed. The patient's tolerance of previous anesthesia was reviewed. - The risks and benefits of the procedure and the sedation options and risks were discussed with the patient. All questions were answered and informed consent was obtained. After I obtained informed consent, the scope was passed under direct vision. Throughout the procedure, the patient's blood pressure, pulse, and oxygen saturations were monitored continuously. The scope was introduced through the anus and advanced to the terminal ileum. The colonoscopy was performed without difficulty. The patient tolerated the procedure well. The quality of the bowel preparation was good. Findings: The terminal ileum appeared normal. Non-bleeding internal hemorrhoids were found during endoscopy. The hemorrhoids were mild. Impression: - The examined portion of the ileum was normal. - Non-bleeding internal hemorrhoids. - No specimens collected. Recommendation: - Return patient to [facility] for [facility] care. Donald King M.D. Donald King MD 06/21/2018 4:04:39 PM This report has been signed electronically. Note Initiated On: 06/21/2018 3:22 PM Number of Addenda: 0 I attest to the content of the Intraoperative Record and orders documented therein, exceptions below {[id number]}
--- NOTE | 2018-06-22 11:19 | DIAGNOSTIC IMAGING REPORT ---
GI SERIES W/AIR ROUTINE CLINICAL HISTORY: 37 years-old Male with Hiatal hernia-define anatomy. Recent endoscopy with hiatal hernia. Acute GI bleed TECHNIQUE: A standard air contrast upper GI series was performed following administration of barium and effervescent crystals. Multiple spot fluoroscopic images were obtained and provided for review. COMPARISON STUDY: None available FLUOROSCOPY TIME: 1.9 minutes. A total of 18 images were submitted. FINDINGS: The patient swallowed barium without difficulty. No aspiration was definitively visualized. The esophagus distended normally with barium and effervescent crystals. No strictures, mucosal ulcerations, or intraluminal mass lesions were identified involving the esophagus. There was no significant gastroesophageal reflux. Barium was seen to flow freely through the gastroesophageal junction. No active reflux was demonstrated with Valsalva maneuver. Evaluation of the stomach demonstrates no gastric mucosal irregularity or filling defect. There is a large sliding-type hiatal hernia with the majority of the stomach noted within the thoracic cavity. Additionally, there is a possible mesentero-axial volvulus. The pylorus is noted below the hemidiaphragm. Contrast flows freely into the pyloric channel and duodenum. Small to moderate duodenal diverticulum. IMPRESSION: 1. Large sliding-type hiatal hernia with majority of the stomach noted within the thoracic cavity. Additionally, there is a possible mesentero-axial volvulus of the stomach without obstruction. 2. Small to moderate duodenal diverticulum. 3. No significant gastroesophageal reflux. The above report was generated using voice recognition software. It may contain grammatical, syntax or spelling errors. Electronically signed by: Joel Chauhan M.D. 06/22/2018 11:17 AM Dictated Date/Time: 06/22/2018 11:10 AM
--- NOTE | 2018-06-22 13:23 | Medical Consult ---
Consultation Note Date of Service Jun 22, 2018. Consultation Note Consult Dictated #[id number]
[2018-06-22 13:36] LABS: HEMATOCRIT 29.4 % (42-52); HEMOGLOBIN 8.7 g/dL (14.0-18.0)
--- NOTE | 2018-06-22 13:50 | DIAGNOSTIC IMAGING REPORT ---
(CHEST) THORAX WITHOUT CT DOSE: 491.95 mGy.cm CLINICAL HISTORY: 37 years-old Male with hiatal hernia. Acute GI bleed with anemia TECHNIQUE: Multiaxial CT images of the chest were performed without contrast. A dose lowering technique was utilized adhering to the principles of ALARA. COMPARISON: Upper GI series of same day FINDINGS: Homogeneous thyroid. No pathologically enlarged lymph nodes are identified. Heart is normal in size without pericardial effusion. Thoracic aorta is normal in both course and caliber. Unopacified pulmonary arterial tree is unremarkable. Azygos lobe and fissure noted. Mild emphysematous changes within an upper lung zone predominant distribution. No pleural effusion or pneumothorax. Linear subsegmental consolidative opacities about the medial basal segment right lower lobe suggest atelectasis/scarring. Small left Bochdalek hernia. Mild bilateral bronchial wall thickening. Areas of mucous plugging noted within the basal right lower lobe. Large hiatal hernia redemonstrated. The gastroesophageal junction is not definitively seen. There is prominent streak artifact from retained enteric contrast within the stomach. The distal gastric body, pylorus and antrum are noted below the level the diaphragm. No gastric volvulus identified. Contrast is seen within the duodenum and large bowel within the upper abdomen. Soft tissues are within normal limits. The bones appear to be intact. Degenerative changes of the shoulders and spine. IMPRESSION: 1. Large hiatal hernia with the majority of the stomach within the right hemithorax redemonstrated. There is prominent streak artifact from retained enteric contrast within the gastric lumen which limits the study. The gastroesophageal junction is not definitively seen. These findings would suggest large sliding-type hiatal hernia with para-esophageal hernia also within the differential. No evidence of obstruction or definite gastric volvulus. 2. Subsegmental atelectasis/scarring of the basal right lower lobe. 3. Emphysema with mild bilateral bronchial wall thickening and bronchial secretions. Electronically signed by: Jole Chauhan M.D. 06/22/2018 1:49 PM Dictated Date/Time: 06/22/2018 1:35 PM
--- NOTE | 2018-06-22 14:20 | Progress Note ---
Subjective Date of Service: Jun 22, 2018. Subjective Pt evaluation today including: conversation w/ patient, physical exam, lab review, review of studies, conversation w/ foreign legal consultant, review of inpatient medication list Pain: no pain PO Intake: NPO Voiding: no voiding problems reviewed labs, Hb up to 8.4 this AM and then 8.7 in afternoon iron quite low, ferritin is 2.7, needs replaced reviewed small bowel series, shows large sliding hiatal hernia with majority of stomach in the chest discussed with Dr. King, he recommended getting consult with thoracic surgery would like to get small bowel capsule endoscopy, needs hernia fixed first discussed with Man [place] and Dr. Pablo, going to try to get surgery done tomorrow Review of Systems Constitutional: + weakness, + fatigue All Other Systems: Reviewed and Negative Medications Current Inpatient Medications Medications (Trade) Dose Ordered Sig/Angelita Route Start Time Stop Time Status Last Admin Dose Admin Ondansetron HCl (Zofran Inj) 4 mg Q6H PRN IV 06/20/18 10:45 07/20/18 10:44 Polyethylene (Miralax Powder Packet) 17 gm DAILY PRN PO 06/20/18 10:45 07/20/18 10:44 Pantoprazole Sodium 40 mg/ Dextrose 100 ml @ 20 mls/hr Q5H IV 06/20/18 14:30 07/20/18 14:29 06/22/18 12:37 20 MLS/HR Objective Vital Signs Date Time Temp Pulse Resp B/P (MAP) Pulse Ox O2 Delivery O2 Flow Rate FiO2 06/22/18 07:44 Room Air 06/22/18 07:36 36.8 65 18 117/87 (97) 94 Room Air 06/22/18 00:14 36.8 63 16 110/70 (83) 95 Room Air 06/22/18 00:00 Room Air 06/21/18 21:00 Room Air 06/21/18 20:05 36.7 65 18 129/86 (100) 100 Room Air 06/21/18 18:38 36.5 60 18 98 0.0 06/21/18 16:45 Room Air 06/21/18 16:41 36.5 60 18 119/102 (108) 98 Room Air 06/21/18 16:31 61 18 102/68 (79) 94 Room Air 7/25/18 16:17 69 16 113/89 (97) 97 Room Air 06/21/18 16:02 36.7 73 16 93/60 (71) 98 Room Air 06/21/18 15:17 37 69 20 117/84 (95) 94 Room Air Physical Exam General Appearance: WD/WN, no apparent distress Eyes: normal inspection, EOMI, sclerae normal ENT: normal ENT inspection, hearing grossly normal, pharynx normal Neck: supple, no adenopathy, no JVD, trachea midline Respiratory/Chest: chest non-tender, lungs clear, normal breath sounds, no respiratory distress, no accessory muscle use Cardiovascular: regular rate, rhythm, no edema, no gallop, no JVD, no murmur Abdomen: normal bowel sounds, non tender, soft, no organomegaly Extremities: normal range of motion, non-tender, normal inspection, no pedal edema, no calf tenderness, pelvis stable Neurologic/Psychiatric: cell liner II-XII nml as tested, no motor/sensory deficits, alert, normal mood/affect, oriented x 3 Skin: normal color, warm/dry, no rash Laboratory Results CT chest IMPRESSION: 1. Large hiatal hernia with the majority of the stomach within the right hemithorax redemonstrated. There is prominent streak artifact from retained enteric contrast within the gastric lumen which limits the study. The gastroesophageal junction is not definitively seen. These findings would suggest large sliding-type hiatal hernia with para-esophageal hernia also within the differential. No evidence of obstruction or definite gastric volvulus. 2. Subsegmental atelectasis/scarring of the basal right lower lobe. 3. Emphysema with mild bilateral bronchial wall thickening and bronchial secretions. GI series IMPRESSION: 1. Large sliding-type hiatal hernia with majority of the stomach noted within the thoracic cavity. Additionally, there is a possible mesentero-axial volvulus of the stomach without obstruction. 2. Small to moderate duodenal diverticulum. 3. No significant gastroesophageal reflux. Last 24 Hours Test 06/22/18 06:55 06/22/18 13:03 Hemoglobin 8.4 g/dL 8.7 g/dL Hematocrit 28.7 % 29.4 % Iron Level 13 mcg/dl Total Iron Binding Capacity 509 mcg/dl Ferritin 2.7 ng/ml Vitamin B12 Level 416 pg/mL Folate 15.50 ng/mL Assessment and Plan 37 yo male with GI bleed, acute blood loss anemia - GI bleed with acute blood loss anemia hb 3.9 on admission, up to 8.7 this afternoon after 4 units total transfused Protonix PO colonoscopy on 06/21 with no bleeding, normal ileum EGD showed large hiatal hernia, sliding, no ulcers or bleeding Dr. King would like to get outpatient small bowel capsule endoscopy once hiatal hernia fixed - Large sliding hiatal hernia confirmed on GI series today CT chest shows the same Dr. Pablo going to try to get OR time tomorrow, make NPO after midnight - Iron deficiency: profound, ferritin is 2.7 will give Venofer while here follow up on small bowel biopsy to exclude Celiac disease - DVT prophylaxis: SCD due to bleed - Unknown psychiatric issues: was recently taken off of Depakote and BuSpar mood is stable plan for surgical correction of large hiatal hernia tomorrow
[2018-06-22] MEDS ORDERED: IRON SUCROSE INJ 100 MG in SODIUM CHLORIDE 0.9% 100ML 100 ML IV SCH (14:30)
--- NOTE | 2018-06-22 15:30 | CONSULTATION REPORT ---
DATE OF CONSULTATION: 06/22/2018 REASON FOR CONSULTATION: Hiatal hernia. HISTORY OF PRESENT ILLNESS: This is a 37-year-old male we are asked to see due a large hiatal hernia. The patient was admitted to the hospital because he notes that over the past week he has been feeling somewhat fatigued and weak. He also notes melanotic stools over the same time. The patient did have labs drawn where he was noted to have a hemoglobin of 3.9. He was therefore admitted to the hospital where he received transfusion of 4 units of packed red blood cells and his hemoglobin has ultimately risen to 8.4. Gastroenterology consultation was obtained and Dr. Donald King performed both upper and lower endoscopies. On the patient's colonoscopy, the patient was not noted to have any source of bleeding. He was noted to have some internal hemorrhoids that were not bleeding and patient did not have any other findings suggestive of recent oral bleeding. Patient also underwent an EGD where patient was noted to have a normal stomach mucosa along with normal portion of the duodenum that was able to be examined. He was also not found to have any source of bleeding in his esophagus. Because of these findings, the patient did undergo an upper GI series with air contrast where patient was found to have a large sliding hiatal hernia where large portion of stomach was noted to be within the thoracic cavity with concern for mesenteroaxial volvulus without any obstruction. We therefore see the patient due to these findings. I did question the patient on numerous symptoms and he says that over the past 1 week he has noted some worsening fatigue even with minimal activity. He is short of breath with walking. He also notes some lightheadedness. He denies any chest pain. He notes he has been having melanotic stools for approximately 1 week. Denies any bright red blood per rectum or hematemesis. He has not had any falls or head injuries. He denies any blurred or double vision. He denies any tinnitus, vertigo, epistaxis or sore throat. Again, no neck pain or chest pain is noted. He does note shortness of breath with even minimal exertion. He is not short of breath at rest. As noted above, the patient has had melanotic stools with no other signs of GI bleeding. He says he has not had any abdominal pain, nausea, vomiting since these symptoms began. Patient says that approximately a month ago he did have some dental work done where he was taking some ibuprofen, but this has stopped. He denies any dysuria. He has no history of DVT or PE. He does suffer from anxiety. At the time of my exam, the patient was resting comfortably in bed without complaints. PAST MEDICAL HISTORY: Includes the followin. Anxiety. PAST SURGICAL HISTORY: Dental procedures. ALLERGIES: HE IS ALLERGIC TO PENICILLIN. OUTPATIENT MEDICATION REGIMEN: Patient says that he currently has had his outpatient medicines stopped but previously was taking BuSpar. CURRENT MEDICATIONS: Include: 1. Zofran as needed. 2. MiraLax as needed. 3. Protonix intravenously. SOCIAL HISTORY: The patient has smoked for approximately 15 years, anywhere from one-half pack to 1 pack of cigarettes per day. FAMILY HISTORY: Positive for hypertension and he believes coronary artery disease does run in his family as well. REVIEW OF SYSTEMS: As noted above. PHYSICAL EXAMINATION: VITAL SIGNS: Patient is afebrile. Temperature 36.8, pulse 65 and regular, respirations 18 and unlabored, blood pressure 117/87, pulse ox 94% on room air. SKIN: Warm with good turgor. Patient's skin did appear somewhat pale, however. HEENT: Head is atraumatic, normocephalic. Eyes: Pupils equal, round react to light and accommodation. Extraocular motions are intact. Ears: Auditory acuity is grossly intact. Nose: Nasal patency was intact. Sinuses are nontender. Mouth is moist without exudates. NECK: Supple. There is no JVD. CARDIOVASCULAR: Regular rate and rhythm. LUNGS: Clear to auscultation. ABDOMEN: Soft, nondistended and nontender to palpation. EXTREMITIES: Revealed no cyanosis, clubbing, or edema. He had palpable radial and DP pulses bilaterally. NEUROLOGIC: Revealed no focal deficits as he was able to move all 4 extremities without any deficits. DIAGNOSTIC DATA: As noted above. IMPRESSION: A 37-year-old male with acute blood loss anemia as well as a large hiatal hernia. PLAN: Concerning patient's acute blood loss anemia, serial hemoglobin and hematocrits are being followed by the primary service. Patient has undergone endoscopies as noted above. A Protonix drip will be continued. Plans have been noted by the GI service to consider an outpatient small bowel video capsule as no specific source of his GI blood loss has been found. Concerning patient's hiatal hernia it is uncertain if this is contributing to patient's GI bleed as stomach appeared normal on his EGD. We will, however, get a CT scan of his chest to further delineate his anatomy particularly intrathoracic portion of his stomach. Dr. Pablo will see patient later today. Discussed possible surgical correction but it is yet to be determined based on his review of the case. [facility]
[2018-06-22 15:45] VITALS: BP 113/75; PULSE 77; TEMP 36.8; O2SAT 96
--- NOTE | 2018-06-22 17:51 | PROGRESS NOTE ---
DATE: 06/22/2018 REASON FOR EVALUATION: Severe microcytic anemia. SUBJECTIVE: Patient reports no abdominal pain or obvious bleeding at this time. His upper GI today demonstrated a significant hiatal hernia with 95+ % of his stomach and the chest cavity with a possible partial volvulus. This would not explain his anemia necessarily, but in order to do a video capsule procedure of his small intestine, this would necessarily need to be repaired. IMPRESSION AND PLAN: The patient has a large esophageal hernia. Dr. Pablo has been consulted and plans to repair this tomorrow. Once the patient is healed, as an outpatient, we will have him come back and undergo video capsule to see if there is any small bowel lesions that could explain his blood loss anemia.
[2018-06-22] MEDS ORDERED: NURSING VERBAL MED ORDER ONE (18:15)
--- NOTE | 2018-06-22 18:32 | SURGICAL CONSULTATION ---
DATE OF CONSULTATION: 06/22/2018 REASON FOR CONSULTATION: 1. Large hiatal hernia. 2. Severe anemia. 3. History of cigarette smoking. HOSPITAL COURSE: This is a 37-year-old inmate who presents with marked anemia for which he is symptomatic for the past week or so. His hemoglobin was as low as 3.9. He has a microcytic anemia and tolerated it well. There must be a degree of chronicity. He was worked up and had a negative colonoscopy except for some small internal hemorrhoids. Also, there was no esophageal erosions or gastric erosions or in the first part of the duodenum. He did have melanotic stools. I discussed with Dr. King who has already performed an upper endoscopy and also obtained a barium swallow. I also ordered a CT scan of his chest. Patient appears to me to have a probable type 3 hiatal hernia. It is interesting because the Z-line appeared to be 40 cm from the incisors, but on the swallow and on the CT scan it does not appear that the GE junction is at the hiatus. There was a large amount of stomach in the right chest. We had a long talk about this. I believe this patient should have repair of this. He really does not have much in the way of symptoms which is surprising. He states he occasionally gets reflux and takes Rolaids. He states he was playing basketball as recently as last summer. He does not have any difficulty walking. More than likely, his anemia is due to ulceration of his stomach despite the negative endoscopy findings. I discussed this with Dr. Donald King. I believe this patient is a candidate for surgery. We are going to proceed in the morning. I had a long talk with the patient, I explained to him how we will make our incisions. I also explained to him that there is a chance that his esophagus is shortened, and that we may have to do a Mojgan gastroplasty, however, we will be able to perform that robotically. I explained what to expect with postop course. He understands. We are going to proceed with a robot-assisted laparoscopic repair with a probable fundoplication. He may require Mojgan gastroplasty although I doubt it, based on the endoscopy findings. In addition, we may end up having to reinforce his diaphragmatic hernia repair. He understands and wishes to proceed. BOBBY
[2018-06-22] MEDS ORDERED: ACETAMINOPHEN 325 MG TAB PO PRN (18:45)
[2018-06-23 00:13] VITALS: BP 123/75; PULSE 82; TEMP 37.1; O2SAT 93
--- NOTE | 2018-06-23 00:28 | Anesthesiology Progress Note ---
Anesthesia Progress Note Date of Service Jun 23, 2018. Progress Notes 37 yo male scheduled for DaVinci Lap Ric with Dr. Pablo. Patient tolerated recent anesthesia for EGD without any complication. Patient has a reassuring airway and normal physical exam. Patient instructed to remain NPO after midnight except for a sip of water with pills if necessary. Patient was consented for general anesthesia with possible arterial line placement. Please contact anesthesia with any questions or concerns. Raiza Hensley MD, PhD Anesthesiology
[2018-06-23] MEDS: PANTOprazole INJ 40 MG in DEXTROSE 5% 100ML IV SCH ×3 (02:54→13:50)
[2018-06-23 07:21] VITALS: BP 119/71; PULSE 78; TEMP 36.9; O2SAT 95
--- NOTE | 2018-06-23 08:35 | History & Physical Bridge Note ---
H&P Re-Evaluation Bridge Note: I have examined the patient, reviewed the History & Physical and in the interval since the performance of the History & Physical I have noted the following changes of clinical significance: No changes noted
--- NOTE | 2018-06-23 12:33 | PROGRESS NOTE ---
DATE: 06/23/2018 ADDENDUM Addendum to note on Feroz Edward from 06/22/2018. When I visited the patient in his room, the patient reported to me that he was not having any further bleeding and no abdominal pain.
[2018-06-23] MEDS ORDERED: IRON SUCROSE INJ 100 MG in SODIUM CHLORIDE 0.9% 100ML 100 ML IV SCH (14:00)
--- NOTE | 2018-06-23 15:06 | Progress Note ---
Subjective Date of Service: Jun 23, 2018. Subjective Pt evaluation today including: conversation w/ patient, physical exam, conversation w/ product consultant, review of inpatient medication list Pain: no pain PO Intake: clear liquids Voiding: no voiding problems patient feeling fine, no new issues discussed with Dr. Pablo, no surgery today, could not get OR time plan for surgery on Tuesday with Dr. Owens small bowel biopsy with increased lymphocytes, subepithelial, can be seen in gluten sensitivity d/w Dr. Baugh, he recommended getting celiac markers Review of Systems All Other Systems: Reviewed and Negative Medications Current Inpatient Medications Medications (Trade) Dose Ordered Sig/Angelita Route Start Time Stop Time Status Last Admin Dose Admin Ondansetron HCl (Zofran Inj) 4 mg Q6H PRN IV 06/20/18 10:45 07/20/18 10:44 Polyethylene (Miralax Powder Packet) 17 gm DAILY PRN PO 06/20/18 10:45 07/20/18 10:44 Pantoprazole Sodium 40 mg/ Dextrose 100 ml @ 20 mls/hr Q5H IV 06/20/18 14:30 07/20/18 14:29 06/23/18 13:50 20 MLS/HR Acetaminophen (Tylenol Tab) 650 mg Q4H PRN PO 06/22/18 18:45 07/22/18 18:44 06/22/18 18:42 650 MG Iron Sucrose 100 mg/Sodium Chloride 105 ml @ 420 mls/hr DAILY@1400 IV 06/24/18 14:00 06/26/18 14:14 Objective Vital Signs Date Time Temp Pulse Resp B/P (MAP) Pulse Ox O2 Delivery O2 Flow Rate FiO2 06/23/18 08:00 Room Air 06/23/18 07:21 36.9 78 18 119/71 (87) 95 Room Air 06/23/18 00:13 37.1 82 18 123/75 (91) 93 Room Air 06/23/18 00:00 Room Air 06/22/18 16:00 Room Air 06/22/18 15:45 36.8 77 18 113/75 (88) 96 Room Air Physical Exam General Appearance: WD/WN, no apparent distress Eyes: normal inspection, EOMI, sclerae normal ENT: normal ENT inspection, hearing grossly normal, pharynx normal Neck: supple, no adenopathy, no JVD, trachea midline Respiratory/Chest: chest non-tender, lungs clear, normal breath sounds, no respiratory distress, no accessory muscle use Cardiovascular: regular rate, rhythm, no edema, no gallop, no JVD, no murmur Abdomen: normal bowel sounds, non tender, soft, no organomegaly Extremities: normal range of motion, non-tender, normal inspection, no pedal edema, no calf tenderness, pelvis stable Neurologic/Psychiatric: structural rigger II-XII nml as tested, no motor/sensory deficits, alert, normal mood/affect, oriented x 3 Skin: normal color, warm/dry, no rash Lymphatic: no adenopathy Assessment and Plan 37 yo male with GI bleed, acute blood loss anemia - GI bleed with acute blood loss anemia hb 3.9 on admission, up to 8.7 yesterday after 4 units total transfused Protonix PO BID colonoscopy on 06/21 with no bleeding, normal ileum EGD showed large hiatal hernia, sliding, no ulcers or bleeding Dr. King would like to get outpatient small bowel capsule endoscopy once hiatal hernia fixed small bowel biopsy shows some increased subepithelial lymphocytes, can be seen with gluten sensitivity will send celiac markers - Large sliding hiatal hernia confirmed on GI series yesterday CT chest shows the same plan for OR on Tuesday to fix the hernia only clears this , asked surgery about diet, concerned that stomach could twist - Iron deficiency: profound, ferritin is 2.7 will give Venofer daily while admitted follow up celiac panel - DVT prophylaxis: SCD due to bleed - Unknown psychiatric issues: was recently taken off of Depakote and BuSpar mood is stable plan for surgical correction of large hiatal hernia on Tuesday, Venofer this
[2018-06-23 16:00] VITALS: BP 117/58; PULSE 84; TEMP 37.3; O2SAT 95
--- NOTE | 2018-06-23 17:06 | SURGERY PROGRESS NOTE ---
DATE: 06/23/2018 Mr. Leon was seen today. He is n.p.o. I plan to take him to the operating room; however, because of the backup in the operating room, we were not going to get this case off until very late in which time it will be after hours. I did not want to start a case of this magnitude that late. In addition, I am going out of town tomorrow. Dr. Chato Owens has kindly agreed to look at Mr. Leon. I believe we can wait the weekend, although I did try and get it done today. I had a long discussion with the patient and explained this. He understands. BOBBY
--- NOTE | 2018-06-23 19:17 | GASTROENTEROLOGY PROGRESS NOTE ---
DATE: 06/23/2018 SUBJECTIVE: Chart reviewed, patient examined. The patient's surgery was delayed today and is rescheduled for Tuesday. Overall, the patient is feeling well without abdominal pain, nausea or vomiting. There are no reports of melena, hematemesis, coffee-ground emesis. LABORATORY STUDIES: His laboratories today show hemoglobin of 8.7 which is up from yesterday of 8.4, celiac markers are currently pending at this time. His folic acid is normal at 15.5 and B12 is normal at 416. Lipase normal at 73. He has a significant iron deficiency with ferritin 2.7, TIBC 509, and iron 13. His BUN and creatinine on admission were 13 and 0.59. White count was 6.34, MCV is significantly diminished at 57.3, platelets 439. INR is 1.1. MEDICATIONS: His medications currently include IV iron, pantoprazole, Zofran p.r.n. and MiraLax p.r.n. REVIEW OF SYSTEMS: Otherwise noncontributory based on 13-point exam except for mentioned above. PHYSICAL EXAMINATION: VITAL SIGNS: Currently blood pressure 117/58, 95% on room air, 84 of heart rate, respirations 16, afebrile at 37.3. GENERAL: The patient is awake, alert and oriented x3. HEENT: Sclerae are anicteric, conjunctiva moist. Oral mucosa moist. HEART: Normal S1, S2. LUNGS: Clear to auscultation without rales, rhonchi or wheezes. ABDOMEN: Soft, flat, nontender, nondistended with good bowel sounds. EXTREMITIES: Without clubbing, cyanosis or edema. RECTAL: Deferred. IMPRESSION AND PLAN: 1. The patient described that several years ago when he was found to be anemic and received transfusion at [facility], he had experienced melenic stools. These did not, however, recur and there were reports of black tarry bowel movements starting about a week ago. There was no use of NSAIDs chronically, although there was short course of Motrin provided for dental work. 2. The source of the patient's anemia is unclear. There are reports of melena although EGD did not define any mucosal sources for bleeding. There is a sizable hiatal hernia and although Ab erosions are suspected, these may be present, they were not identified. His colonoscopy also revealed no abnormalities. At this point, an outpatient capsule to complete the GI evaluation is prudent; however, ideally it would be appropriate to consider repairing the sizable hiatal hernia and not only to exclude or not only for restoring anatomy, but would allow for a more proper capsule study. Also, if Ab erosions are intermittently present, this will help reduce that phenomenon. The description of melenic stools; however, is curious and it may be reasonable to perform a Meckel's scan prior to surgery. Dr. Conley is covering for the weekend. All questions answered.
[2018-06-23] MEDS: PANTOprazole SOD 40 MG TAB PO SCH (21:02)
[2018-06-23 22:34] VITALS: BP 133/79; PULSE 79; TEMP 36.9; O2SAT 97
[2018-06-24 01:17] VITALS: O2SAT 97
[2018-06-24 07:41] LABS: HEMATOCRIT 32.1 % (42-52); HEMOGLOBIN 9.1 g/dL (14.0-18.0)
[2018-06-24 07:47] VITALS: BP 122/88; PULSE 80; TEMP 37; O2SAT 94
--- NOTE | 2018-06-24 07:59 | Surgery Progress Note ---
Subjective Date of Service: Jun 24, 2018. Pt. denies N/V or abdominal pain. Objective Vitals Date Time Temp Pulse Resp B/P (MAP) Pulse Ox O2 Delivery O2 Flow Rate FiO2 06/24/18 07:47 37.0 80 18 122/88 (99) 94 Room Air 06/24/18 01:17 97 Room Air 06/23/18 22:34 36.9 79 18 133/79 (97) 97 Room Air 06/23/18 16:00 37.3 84 16 117/58 (77) 95 Room Air 06/23/18 08:00 Room Air Physical Exam General: + well developed, + well nourished, No distress CV: + RRR Pulmonary: + lungs clear, No accessory muscle use, No respiratory distress Abdomen: + non-distended, + non tender, + soft Neurologic: + alert & oriented x 3 Assessment & Plan 37 year old male with hiatal hernia -concern noted that this may be cause of severe anemia/GI bleed -pt. will undergo surgical correction early next week by Dr. Owens, exact time TBD -H/H has stabilized after 4 units PRBCs
[2018-06-24 09:00] VITALS: O2SAT 94
[2018-06-24] MEDS: PANTOprazole SOD 40 MG TAB PO SCH ×2 (10:36→20:29)
--- NOTE | 2018-06-24 12:30 | Progress Note ---
Subjective Date of Service: Jun 24, 2018. Subjective Pt evaluation today including: conversation w/ patient, physical exam, lab review, review of inpatient medication list Pain: no pain PO Intake: adequate Voiding: no voiding problems Hb up to 9.1, getting Venofer eating well, no abdominal pain, no nausea discussed that he will need to be on clears tomorrow AM through the day, he understood no acute issues Review of Systems All Other Systems: Reviewed and Negative Medications Current Inpatient Medications Medications (Trade) Dose Ordered Sig/Angelita Route Start Time Stop Time Status Last Admin Dose Admin Ondansetron HCl (Zofran Inj) 4 mg Q6H PRN IV 06/20/18 10:45 07/20/18 10:44 Polyethylene (Miralax Powder Packet) 17 gm DAILY PRN PO 06/20/18 10:45 07/20/18 10:44 Acetaminophen (Tylenol Tab) 650 mg Q4H PRN PO 06/22/18 18:45 07/22/18 18:44 06/22/18 18:42 650 MG Iron Sucrose 100 mg/Sodium Chloride 105 ml @ 420 mls/hr DAILY@1400 IV 06/24/18 14:00 06/26/18 14:14 Pantoprazole Sodium (Protonix Tab) 40 mg BID PO 06/23/18 20:00 07/23/18 19:59 06/24/18 10:36 40 MG Objective Vital Signs Date Time Temp Pulse Resp B/P (MAP) Pulse Ox O2 Delivery O2 Flow Rate FiO2 06/24/18 09:00 94 Room Air 0.0 06/24/18 07:47 37.0 80 18 122/88 (99) 94 Room Air 06/24/18 01:17 97 Room Air 06/23/18 22:34 36.9 79 18 133/79 (97) 97 Room Air 06/23/18 16:00 37.3 84 16 117/58 (77) 95 Room Air Physical Exam General Appearance: WD/WN, no apparent distress Eyes: normal inspection, EOMI, sclerae normal ENT: normal ENT inspection, hearing grossly normal, pharynx normal Neck: supple, no adenopathy, no JVD, trachea midline Respiratory/Chest: chest non-tender, lungs clear, normal breath sounds, no respiratory distress, no accessory muscle use Cardiovascular: regular rate, rhythm, no edema, no gallop, no JVD, no murmur Abdomen: normal bowel sounds, non tender, soft, no organomegaly Extremities: normal range of motion, non-tender, normal inspection, no pedal edema, no calf tenderness, pelvis stable Neurologic/Psychiatric: telephonic nurse II-XII nml as tested, no motor/sensory deficits, alert, normal mood/affect, oriented x 3 Skin: normal color, warm/dry, no rash Laboratory Results Last 24 Hours Test 06/24/18 07:07 Hemoglobin 9.1 g/dL Hematocrit 32.1 % Assessment and Plan 37 yo male with GI bleed, acute blood loss anemia - GI bleed with acute blood loss anemia hb 3.9 on admission, up to 9.1 today after 4 units total transfused Protonix PO BID colonoscopy on 06/21 with no bleeding, normal ileum EGD showed large hiatal hernia, sliding, no ulcers or bleeding Dr. King would like to get outpatient small bowel capsule endoscopy once hiatal hernia fixed small bowel biopsy shows some increased subepithelial lymphocytes, can be seen with gluten sensitivity will send celiac markers, still pending no melena, no signs of active bleeding - Large sliding hiatal hernia confirmed on GI series CT chest shows the same plan for OR on Tuesday to fix the hernia diet for today, only clears starting tomorrow AM to allow stomach to empty - Iron deficiency: profound, ferritin was 2.7 will give Venofer daily while admitted, today is dose # 3 follow up celiac panel - DVT prophylaxis: SCD due to bleed - Unknown psychiatric issues: was recently taken off of Depakote and BuSpar mood is stable plan for surgical correction of large hiatal hernia on Tuesday, Venofer this weekend
--- NOTE | 2018-06-24 13:07 | Gastroenterology Progress Note ---
Progress Note Date of Service: Jun 24, 2018 Subjective Pt evaluation today including: conversation w/ patient, physical exam, chart review, lab review, review of studies, review of inpatient medication list cc f/u anemia, melena HPI No stools yesterday or today per patient. No abd pain. Review of Systems Respiratory: No shortness of breath Cardiac: No chest pain Medications Current Inpatient Medications Medications (Trade) Dose Ordered Sig/Angelita Route Start Time Stop Time Status Last Admin Dose Admin Ondansetron HCl (Zofran Inj) 4 mg Q6H PRN IV 06/20/18 10:45 07/20/18 10:44 Polyethylene (Miralax Powder Packet) 17 gm DAILY PRN PO 06/20/18 10:45 07/20/18 10:44 Acetaminophen (Tylenol Tab) 650 mg Q4H PRN PO 06/22/18 18:45 07/22/18 18:44 06/22/18 18:42 650 MG Iron Sucrose 100 mg/Sodium Chloride 105 ml @ 420 mls/hr DAILY@1400 IV 06/24/18 14:00 06/26/18 14:14 Pantoprazole Sodium (Protonix Tab) 40 mg BID PO 06/23/18 20:00 07/23/18 19:59 06/24/18 10:36 40 MG Objective Vital Signs Date Time Temp Pulse Resp B/P (MAP) Pulse Ox O2 Delivery O2 Flow Rate FiO2 06/24/18 09:00 94 Room Air 0.0 06/24/18 07:47 37.0 80 18 122/88 (99) 94 Room Air 06/24/18 01:17 97 Room Air 06/23/18 22:34 36.9 79 18 133/79 (97) 97 Room Air 06/23/18 16:00 37.3 84 16 117/58 (77) 95 Room Air Physical Exam General Appearance: WD/WN, no apparent distress Respiratory/Chest: lungs clear, no respiratory distress Cardiovascular: regular rate, rhythm, no edema Abdomen: normal bowel sounds, non tender, soft Neurologic/Psych: normal mood/affect, oriented x 3 Skin: normal color, warm/dry Laboratory Results Last 24 Hours Test 06/24/18 07:07 Hemoglobin 9.1 g/dL Hematocrit 32.1 % Assessment and Plan Hiatal hernia--surgery planned for possibility this can lead to volvulus and also causing chronic GI blood loss melena--no lesions on EGD or colo to explain, capsule may not work with large HH and also do not want to delay surgery for outpt capsule. Meckels is in the differential so I ordered this but not done on weekend so first possible would be tuesday Fe def anemia--in addition to GI bleeding, Celiac is in the differential given increase lymphs in villi although villi normal length---celiac markers pending increased lymphs in duodenal villi--await celiac markers as above.
[2018-06-24] MEDS: IRON SUCROSE INJ 100 MG in SODIUM CHLORIDE 0.9% 100ML 100 ML IV SCH (14:23)
[2018-06-24 15:40] VITALS: BP 118/76; PULSE 80; TEMP 37; O2SAT 94
[2018-06-24 16:09] VITALS: O2SAT 94
[2018-06-24 22:47] VITALS: BP 135/73; PULSE 79; TEMP 37.3; O2SAT 95
[2018-06-25 07:15] LABS: HEMATOCRIT 30.4 % (42-52); HEMOGLOBIN 8.8 g/dL (14.0-18.0); MEAN CELL VOLUME 71.7 fL (80-100); MEAN CORPUSCULAR HEMOGLOBIN 20.8 pg (25-34); MEAN CORPUSCULAR HGB CONC 28.9 g/dl (32-36); NUCLEATED RED BLOOD CELL ABS 0.03 K/uL (0-0); PLATELET COUNT 357 K/uL (130-400); WHITE BLOOD COUNT 11.46 K/uL (4.8-10.8)
[2018-06-25 07:16] VITALS: BP 112/66; PULSE 66; TEMP 36.9; O2SAT 96
[2018-06-25 07:34] LABS: ALBUMIN 3.1 gm/dl (3.4-5.0); CALCIUM 8.9 mg/dl (8.5-10.1); CREATININE 0.59 mg/dl (0.60-1.40); POTASSIUM 3.6 mmol/L (3.5-5.1)
[2018-06-25] MEDS: PANTOprazole SOD 40 MG TAB PO SCH ×2 (07:45→20:48)
[2018-06-25 07:48] LABS: BASO % 0.6 %; BASO ABS # 0.07 K/uL (0-0.2); EOS % 10.3 %; EOS ABS # 1.18 K/uL (0-0.5); IG# 0.07 K/uL (0.00-0.02); LYMPH % 25.7 %; LYMPH ABS # 2.94 K/uL (1.2-3.4); MONO ABS # 1.26 K/uL (0.11-0.59); NEUT % 51.8 %; NEUT ABS # 5.94 K/uL (1.4-6.5)
[2018-06-25 08:15] VITALS: O2SAT 96
--- NOTE | 2018-06-25 08:42 | Surgery Progress Note ---
Subjective Date of Service: Jun 25, 2018. Pt. denies abdominal pain, N/V, or diarrhea. Objective Vitals Date Time Temp Pulse Resp B/P (MAP) Pulse Ox O2 Delivery O2 Flow Rate FiO2 06/25/18 07:16 36.9 66 17 112/66 (81) 96 Room Air 06/25/18 00:00 Room Air 06/24/18 22:47 37.3 79 16 135/73 (93) 95 Room Air 06/24/18 16:09 94 Room Air 06/24/18 15:40 37.0 80 18 118/76 (90) 94 Room Air 06/24/18 09:00 94 Room Air 0.0 Physical Exam General: + well developed, + well nourished, No distress CV: + RRR Pulmonary: + lungs clear, No accessory muscle use, No respiratory distress Abdomen: + non-distended, + non tender, + soft Extremities: No calf tenderness Neurologic: + alert & oriented x 3 Assessment & Plan 37 year old male with hiatal hernia -concern noted that this may be cause of severe anemia/GI bleed -pt. will undergo surgical correction early next week by Dr. Owens, exact time TBD -H/H remains stable: -he has received a total of 4 units PRBCs
[2018-06-25] MEDS: IRON SUCROSE INJ 100 MG in SODIUM CHLORIDE 0.9% 100ML 100 ML IV SCH (13:55)
--- NOTE | 2018-06-25 14:40 | Progress Note ---
Subjective Date of Service: Jun 25, 2018. Subjective Pt evaluation today including: conversation w/ patient, physical exam, lab review, review of inpatient medication list Pain: no pain PO Intake: clears Voiding: no voiding problems patient feels fine, frustrated with clear liquids but he accepts it for surgery tomorrow discussed scan for Meckel's, may be able to do it tomorrow reviewed labs, Hb 8.8, down very slightly from 9.1 Review of Systems All Other Systems: Reviewed and Negative Medications Current Inpatient Medications Medications (Trade) Dose Ordered Sig/Angelita Route Start Time Stop Time Status Last Admin Dose Admin Ondansetron HCl (Zofran Inj) 4 mg Q6H PRN IV 06/20/18 10:45 07/20/18 10:44 Polyethylene (Miralax Powder Packet) 17 gm DAILY PRN PO 06/20/18 10:45 07/20/18 10:44 Acetaminophen (Tylenol Tab) 650 mg Q4H PRN PO 06/22/18 18:45 07/22/18 18:44 06/22/18 18:42 650 MG Iron Sucrose 100 mg/Sodium Chloride 105 ml @ 420 mls/hr DAILY@1400 IV 06/24/18 14:00 06/26/18 14:14 06/25/18 13:55 420 MLS/HR Pantoprazole Sodium (Protonix Tab) 40 mg BID PO 06/23/18 20:00 07/23/18 19:59 06/25/18 07:45 40 MG Objective Vital Signs Date Time Temp Pulse Resp B/P (MAP) Pulse Ox O2 Delivery O2 Flow Rate FiO2 06/25/18 08:15 96 Room Air 06/25/18 07:16 36.9 66 17 112/66 (81) 96 Room Air 06/25/18 00:00 Room Air 06/24/18 22:47 37.3 79 16 135/73 (93) 95 Room Air 06/24/18 16:09 94 Room Air 06/24/18 15:40 37.0 80 18 118/76 (90) 94 Room Air Physical Exam General Appearance: WD/WN, no apparent distress Eyes: normal inspection, EOMI, sclerae normal ENT: normal ENT inspection, hearing grossly normal, pharynx normal Neck: supple, no adenopathy, no JVD, trachea midline Respiratory/Chest: chest non-tender, lungs clear, normal breath sounds, no respiratory distress, no accessory muscle use Cardiovascular: regular rate, rhythm, no edema, no gallop, no JVD, no murmur Abdomen: normal bowel sounds, non tender, soft, no organomegaly Extremities: normal range of motion, non-tender, normal inspection, no pedal edema, no calf tenderness, pelvis stable 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, no motor/sensory deficits, alert, normal mood/affect, oriented x 3 Skin: normal color, warm/dry, no rash Lymphatic: no adenopathy Laboratory Results Last 24 Hours Test 06/25/18 06:40 White Blood Count 11.46 K/uL Red Blood Count 4.24 M/uL Hemoglobin 8.8 g/dL Hematocrit 30.4 % Mean Corpuscular Volume 71.7 fL Mean Corpuscular Hemoglobin 20.8 pg Mean Corpuscular Hemoglobin Concent 28.9 g/dl Platelet Count 357 K/uL Neutrophils (%) (Auto) 51.8 % Lymphocytes (%) (Auto) 25.7 % Monocytes (%) (Auto) 11.0 % Eosinophils (%) (Auto) 10.3 % Basophils (%) (Auto) 0.6 % Neutrophils # (Auto) 5.94 K/uL Lymphocytes # (Auto) 2.94 K/uL Monocytes # (Auto) 1.26 K/uL Eosinophils # (Auto) 1.18 K/uL Basophils # (Auto) 0.07 K/uL Immature Granulocyte % (Auto) 0.6 % Immature Granulocyte # (Auto) 0.07 K/uL Nucleated RBC Absolute Count (auto) 0.03 K/uL Nucleated Red Blood Cells % 0.2 % Polychromasia 1+ Hypochromasia PRESENT Anisocytosis PRESENT Ovalocytes 1+ Sodium Level 140 mmol/L Potassium Level 3.6 mmol/L Chloride Level 105 mmol/L Carbon Dioxide Level 26 mmol/L Anion Gap 8.0 mmol/L Blood Urea Nitrogen 12 mg/dl Creatinine 0.59 mg/dl Est Creatinine Clear Calc Drug Dose 151.6 ml/min Estimated GFR () 147.8 Estimated GFR (Non- 127.5 BUN/Creatinine Ratio 21.0 Random Glucose 90 mg/dl Calcium Level 8.9 mg/dl Total Bilirubin 0.3 mg/dl Aspartate Amino Transf (AST/SGOT) 12 U/L Alanine Aminotransferase (ALT/SGPT) 13 U/L Alkaline Phosphatase 115 U/L Total Protein 7.0 gm/dl Albumin 3.1 gm/dl Globulin 3.9 gm/dl Albumin/Globulin Ratio 0.8 Assessment and Plan 37 yo male with GI bleed, acute blood loss anemia - GI bleed with acute blood loss anemia hb 3.9 on admission, up to 9.1 on 06/24, down slightly to 8.8 today but overall stable received 4 units total PRBC Protonix PO BID colonoscopy on 06/21 with no bleeding, normal ileum EGD showed large hiatal hernia, sliding, no ulcers or bleeding Dr. King would like to get outpatient small bowel capsule endoscopy once hiatal hernia fixed small bowel biopsy shows some increased subepithelial lymphocytes, can be seen with gluten sensitivity celiac markers are pending no melena, no signs of active bleeding GI would like to check nuclear medicine scan for Meckel's diverticulum, if it cannot be done tomorrow then could do outpatient - Large sliding hiatal hernia confirmed on GI series CT chest shows the same plan for OR on Tuesday to fix the hernia, he is at risk for volvulus only clears today, NPO after midnight - Iron deficiency: profound, ferritin was 2.7 will give Venofer daily while admitted, today is dose # 4 follow up celiac panel should be discharged on oral iron supplementation - DVT prophylaxis: SCD due to bleed - Unknown psychiatric issues: was recently taken off of Depakote and BuSpar mood is stable plan for surgical correction of large hiatal hernia on Tuesday, Venofer this weekend
[2018-06-25 15:24] VITALS: BP 113/77; PULSE 62; TEMP 36.7; O2SAT 96
--- NOTE | 2018-06-25 15:37 | Gastroenterology Progress Note ---
Progress Note Date of Service: Jun 25, 2018 Subjective Pt evaluation today including: conversation w/ patient, physical exam, chart review, lab review, review of studies, review of inpatient medication list cc f/u anemia, hiatal hernia HPI Pt denies abd pain, chest pain and shortness of breath. Tolerating liquid diet. Review of Systems Respiratory: No shortness of breath Cardiac: No chest pain Medications Current Inpatient Medications Medications (Trade) Dose Ordered Sig/Angelita Route Start Time Stop Time Status Last Admin Dose Admin Ondansetron HCl (Zofran Inj) 4 mg Q6H PRN IV 06/20/18 10:45 07/20/18 10:44 Polyethylene (Miralax Powder Packet) 17 gm DAILY PRN PO 06/20/18 10:45 07/20/18 10:44 Acetaminophen (Tylenol Tab) 650 mg Q4H PRN PO 06/22/18 18:45 07/22/18 18:44 06/22/18 18:42 650 MG Iron Sucrose 100 mg/Sodium Chloride 105 ml @ 420 mls/hr DAILY@1400 IV 06/24/18 14:00 06/26/18 14:14 06/25/18 13:55 420 MLS/HR Pantoprazole Sodium (Protonix Tab) 40 mg BID PO 06/23/18 20:00 07/23/18 19:59 06/25/18 07:45 40 MG Objective Vital Signs Date Time Temp Pulse Resp B/P (MAP) Pulse Ox O2 Delivery O2 Flow Rate FiO2 06/25/18 15:24 36.7 62 18 113/77 (89) 96 Room Air 06/25/18 08:15 96 Room Air 06/25/18 07:16 36.9 66 17 112/66 (81) 96 Room Air 06/25/18 00:00 Room Air 06/24/18 22:47 37.3 79 16 135/73 (93) 95 Room Air 06/24/18 16:09 94 Room Air 06/24/18 15:40 37.0 80 18 118/76 (90) 94 Room Air Physical Exam General Appearance: WD/WN, no apparent distress Respiratory/Chest: lungs clear, no respiratory distress Cardiovascular: regular rate, rhythm, no edema Abdomen: normal bowel sounds, non tender, soft, no organomegaly Neurologic/Psych: normal mood/affect, oriented x 3 Skin: normal color, warm/dry Laboratory Results Last 24 Hours Test 06/25/18 06:40 White Blood Count 11.46 K/uL Red Blood Count 4.24 M/uL Hemoglobin 8.8 g/dL Hematocrit 30.4 % Mean Corpuscular Volume 71.7 fL Mean Corpuscular Hemoglobin 20.8 pg Mean Corpuscular Hemoglobin Concent 28.9 g/dl Platelet Count 357 K/uL Neutrophils (%) (Auto) 51.8 % Lymphocytes (%) (Auto) 25.7 % Monocytes (%) (Auto) 11.0 % Eosinophils (%) (Auto) 10.3 % Basophils (%) (Auto) 0.6 % Neutrophils # (Auto) 5.94 K/uL Lymphocytes # (Auto) 2.94 K/uL Monocytes # (Auto) 1.26 K/uL Eosinophils # (Auto) 1.18 K/uL Basophils # (Auto) 0.07 K/uL Immature Granulocyte % (Auto) 0.6 % Immature Granulocyte # (Auto) 0.07 K/uL Nucleated RBC Absolute Count (auto) 0.03 K/uL Nucleated Red Blood Cells % 0.2 % Polychromasia 1+ Hypochromasia PRESENT Anisocytosis PRESENT Ovalocytes 1+ Sodium Level 140 mmol/L Potassium Level 3.6 mmol/L Chloride Level 105 mmol/L Carbon Dioxide Level 26 mmol/L Anion Gap 8.0 mmol/L Blood Urea Nitrogen 12 mg/dl Creatinine 0.59 mg/dl Est Creatinine Clear Calc Drug Dose 151.6 ml/min Estimated GFR () 147.8 Estimated GFR (Non- 127.5 BUN/Creatinine Ratio 21.0 Random Glucose 90 mg/dl Calcium Level 8.9 mg/dl Total Bilirubin 0.3 mg/dl Aspartate Amino Transf (AST/SGOT) 12 U/L Alanine Aminotransferase (ALT/SGPT) 13 U/L Alkaline Phosphatase 115 U/L Total Protein 7.0 gm/dl Albumin 3.1 gm/dl Globulin 3.9 gm/dl Albumin/Globulin Ratio 0.8 Assessment and Plan Hiatal hernia--surgery planned for possibility this can lead to volvulus and also causing chronic GI blood loss--no abd pain or chest pain to suggest active volvulus or incarceration. melena--no lesions on EGD or colo to explain, capsule may not work with large HH and also do not want to delay surgery for outpt capsule. Meckels is in the differential so ordered fro tomorrow. Fe def anemia--in addition to GI bleeding, Celiac is in the differential given increase lymphs in villi although villi normal length---celiac markers pending increased lymphs in duodenal villi--await celiac markers as above.
[2018-06-25 16:10] VITALS: O2SAT 94
[2018-06-25 23:49] VITALS: BP 108/68; PULSE 61; TEMP 36.8; O2SAT 96
[2018-06-26 06:41] LABS: HEMATOCRIT 30.1 % (42-52); HEMOGLOBIN 8.6 g/dL (14.0-18.0); MEAN CELL VOLUME 72.9 fL (80-100); MEAN CORPUSCULAR HEMOGLOBIN 20.8 pg (25-34); MEAN CORPUSCULAR HGB CONC 28.6 g/dl (32-36); MEAN PLATELET VOLUME 9.3 fL (7.4-10.4); PLATELET COUNT 339 K/uL (130-400)
[2018-06-26 06:42] LABS: BASO % 0.8 %; BASO ABS # 0.07 K/uL (0-0.2); EOS ABS # 1.16 K/uL (0-0.5); IG# 0.02 K/uL (0.00-0.02); LYMPH % 27.5 %; LYMPH ABS # 2.28 K/uL (1.2-3.4); MONO % 8.9 %; MONO ABS # 0.74 K/uL (0.11-0.59); NEUT % 48.6 %; NEUT ABS # 4.03 K/uL (1.4-6.5)
[2018-06-26 06:43] LABS: CALCIUM 8.6 mg/dl (8.5-10.1); CREATININE 0.65 mg/dl (0.60-1.40); TOTAL PROTEIN 6.9 gm/dl (6.4-8.2)
[2018-06-26 07:24] VITALS: BP 99/65; PULSE 55; TEMP 36.7; O2SAT 98
[2018-06-26] MEDS: PANTOprazole SOD 40 MG TAB PO SCH ×2 (07:43→20:21)
[2018-06-26] MEDS ORDERED: CIMETIDINE 300 MG TAB PO ONE ×2 (07:45→09:45)
[2018-06-26] MEDS ORDERED: NURSING VERBAL MED ORDER ONE (07:45)
--- NOTE | 2018-06-26 09:02 | Surgery Progress Note ---
Subjective Date of Service: Jun 26, 2018. (Mina Bingham PA) No abdominal pain, N/V, or melena noted. (Mina Bingham PA) as above. pt with mild symptoms now. ct reviewed. unclear if this is causing his anemia but it's a dangerous hernia for gastric torsion and should be repaired this admission. discussed options and risks with patient ( bleeding/ infection/dvt/pe/cva/mi/injury to other organs etc...we discussed his diet post op and what to expect. questions answered. will proceed with surgery tomorrow. (Sandeep Owens D.O.) Objective Vitals Date Time Temp Pulse Resp B/P (MAP) Pulse Ox O2 Delivery O2 Flow Rate FiO2 06/26/18 07:33 Room Air 06/26/18 07:24 36.7 55 20 99/65 (76) 98 Room Air 06/26/18 00:00 Room Air 06/25/18 23:49 36.8 61 17 108/68 (81) 96 Room Air 06/25/18 16:10 94 Room Air 06/25/18 15:24 36.7 62 18 113/77 (89) 96 Room Air (Mina Bignham PA) Physical Exam General: + well developed, + well nourished, No distress CV: + RRR Pulmonary: + lungs clear, + accessory muscle use, + respiratory distress Abdomen: + non-distended, + non tender, + soft Extremities: No calf tenderness Neurologic: + alert & oriented x 3 (Mina Bingham PA) Assessment & Plan 37 year old male with hiatal hernia -concern noted that this may be cause of severe anemia/GI bleed -pt. tent. scheduled for surgical correction by Dr. Owens tomorrow 06/27/18 -H/H remains stable: -he has received a total of 4 units PRBCs -plans noted or Meckel scan today as upper and lower endoscopies did not ascertain cause of anemia (Mina Bingham PA)
--- NOTE | 2018-06-26 11:29 | Progress Note ---
Progress Note Date of Service Jun 26, 2018. Progress Note Patient was seen on 06/23 for a planned robotic Nissin fundoplication. He was rescheduled at that point in time as the robot was not available. The case is now scheduled for 06/27. There has been no change to his clinical status or medical history. Consent obtained by Dr Hensley remains on file.
--- NOTE | 2018-06-26 11:58 | DIAGNOSTIC IMAGING REPORT ---
NUCLEAR MEDICINE GI MECKEL'S SCAN CLINICAL HISTORY: melena with negative EGD and colonoscopy COMPARISON STUDY: Chest CT dated 06/22/2018 FINDINGS: The patient was injected with 16 mCi of technetium 99m pertechnetate. Anterior imaging was performed. There are no foci of abnormal increased activity suspicious for a Meckel's diverticulum. Review of cine images demonstrate a short lived blush within the left mid abdomen at the level of the kidneys. Although of uncertain etiology, physiologic renal activity is suspected. There is activity within the base of the right chest which corresponds to a hernia with a partially intrathoracic stomach. IMPRESSION: 1. No scintigraphic evidence of a Meckel's diverticulum. Electronically signed by: Andrew Atkinson M.D. 06/26/2018 11:57 AM Dictated Date/Time: 06/26/2018 11:50 AM
[2018-06-26] MEDS: IRON SUCROSE INJ 100 MG in SODIUM CHLORIDE 0.9% 100ML 100 ML IV SCH (13:47)
[2018-06-26 15:28] VITALS: BP 106/67; PULSE 58; TEMP 36.8; O2SAT 100
[2018-06-26 16:02] VITALS: O2SAT 94
--- NOTE | 2018-06-26 18:10 | PROGRESS NOTE ---
DATE: 06/26/2018 Patient reports no abdominal pain, difficulty swallowing, or change in bowels. His hemoglobin has remained stable at 8.6 after 4 units of blood. He is scheduled to have a hiatal hernia repair tomorrow with Dr. Owens. His Meckel scan today is negative for Meckel's diverticulum. After his hiatal hernia is repaired, the plan is for him to get an outpatient video capsule procedure to inspect the small intestine for potential source of blood loss.
--- NOTE | 2018-06-26 22:12 | Progress Note ---
Subjective Date of Service: Jun 26, 2018. Subjective Pt evaluation today including: conversation w/ patient, physical exam Patient reports feeling well. Patient reports being hungry and would like to have the procedure today. However this was postponed until tomorrow. Initially patient was not open to having repeat studies today if the procedure was not being done today. However, he was able to be convinced. Review of Systems Constitutional: No fever Eyes: No worsening of vision Respiratory: No cough Cardiac: No chest pain Abdomen: No constipation Musculoskeletal: No joint pain Neurologic: No memory loss Psychiatric: No depression symptoms Heme: No abnormal bleeding/bruising Endo: No fatigue Skin: No rash All Other Systems: Reviewed and Negative Objective Vital Signs Date Time Temp Pulse Resp B/P (MAP) Pulse Ox O2 Delivery O2 Flow Rate FiO2 06/26/18 16:02 94 Room Air 06/26/18 15:28 36.8 58 18 106/67 (80) 100 Room Air 06/26/18 07:33 Room Air 06/26/18 07:24 36.7 55 20 99/65 (76) 98 Room Air 06/26/18 00:00 Room Air 06/25/18 23:49 36.8 61 17 108/68 (81) 96 Room Air Physical Exam Comments: General Appearance: WD/WN, no apparent distress Eyes: normal inspection, EOMI, sclerae normal ENT: normal ENT inspection, hearing grossly normal, pharynx normal Neck: supple, no adenopathy, no JVD, trachea midline Respiratory/Chest: chest non-tender, lungs clear, normal breath sounds, no respiratory distress, no accessory muscle use Cardiovascular: regular rate, rhythm, no edema, no gallop, no JVD, no murmur Abdomen: normal bowel sounds, non tender, soft, no organomegaly Extremities: normal range of motion, non-tender, normal inspection, no pedal edema, no calf tenderness, pelvis stable 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, no motor/sensory deficits, alert, normal mood/affect, oriented x 3 Skin: normal color, warm/dry, no rash Lymphatic: no adenopathy Laboratory Results Last 24 Hours Test 06/26/18 05:52 White Blood Count 8.30 K/uL Red Blood Count 4.13 M/uL Hemoglobin 8.6 g/dL Hematocrit 30.1 % Mean Corpuscular Volume 72.9 fL Mean Corpuscular Hemoglobin 20.8 pg Mean Corpuscular Hemoglobin Concent 28.6 g/dl Platelet Count 339 K/uL Mean Platelet Volume 9.3 fL Neutrophils (%) (Auto) 48.6 % Lymphocytes (%) (Auto) 27.5 % Monocytes (%) (Auto) 8.9 % Eosinophils (%) (Auto) 14.0 % Basophils (%) (Auto) 0.8 % Neutrophils # (Auto) 4.03 K/uL Lymphocytes # (Auto) 2.28 K/uL Monocytes # (Auto) 0.74 K/uL Eosinophils # (Auto) 1.16 K/uL Basophils # (Auto) 0.07 K/uL Immature Granulocyte % (Auto) 0.2 % Immature Granulocyte # (Auto) 0.02 K/uL Polychromasia 1+ Hypochromasia PRESENT Poikilocytosis PRESENT Anisocytosis PRESENT Sodium Level 139 mmol/L Potassium Level 4.0 mmol/L Chloride Level 107 mmol/L Carbon Dioxide Level 26 mmol/L Anion Gap 6.0 mmol/L Blood Urea Nitrogen 7 mg/dl Creatinine 0.65 mg/dl Est Creatinine Clear Calc Drug Dose 137.6 ml/min Estimated GFR () 142.0 Estimated GFR (Non- 122.6 BUN/Creatinine Ratio 10.3 Random Glucose 87 mg/dl Calcium Level 8.6 mg/dl Total Bilirubin 0.4 mg/dl Aspartate Amino Transf (AST/SGOT) 10 U/L Alanine Aminotransferase (ALT/SGPT) 13 U/L Alkaline Phosphatase 117 U/L Total Protein 6.9 gm/dl Albumin 3.0 gm/dl Globulin 3.9 gm/dl Albumin/Globulin Ratio 0.8 Assessment and Plan 37 yo male with GI bleed, acute blood loss anemia - GI bleed with acute blood loss anemia hb 3.9 on admission, up to 9.1 on 06/24, down slightly to 8.6 today but overall stable received 4 units total PRBC Protonix PO BID colonoscopy on 06/21 with no bleeding, normal ileum EGD showed large hiatal hernia, sliding, no ulcers or bleeding Dr. King would like to get outpatient small bowel capsule endoscopy once hiatal hernia fixed small bowel biopsy shows some increased subepithelial lymphocytes, can be seen with gluten sensitivity celiac markers are pending no melena, no signs of active bleeding GI would like to check nuclear medicine scan for Meckel's diverticulum: this was done today and was negative. - Large sliding hiatal hernia confirmed on GI series CT chest shows the same plan for OR on Tuesday to fix the hernia, he is at risk for volvulus only clears today, NPO after midnight - Iron deficiency: profound, ferritin was 2.7 will give Venofer daily while admitted, today is dose # 5 follow up celiac panel should be discharged on oral iron supplementation - DVT prophylaxis: SCD due to bleed - Unknown psychiatric issues: was recently taken off of Depakote and BuSpar mood is stable plan for surgical correction of large hiatal hernia on Tuesday, Venofer this weekend
[2018-06-26 23:15] VITALS: BP 98/71; PULSE 53; TEMP 36.7; O2SAT 96
[2018-06-27] VITALS (7 sets, daily range): BP systolic 95–114; BP diastolic 57–69; PULSE 50–63; TEMP 34.7–37.1; O2SAT 96–98
[2018-06-27] MEDS: PANTOprazole SOD 40 MG TAB PO SCH (07:08)
[2018-06-27] MEDS ORDERED: EpHEDrine SULFATE INJ 50 MG/ML AMP IV PRN (08:00)
[2018-06-27] MEDS ORDERED: ONDANSETRON INJ 2 MG/ML 2 ML VIAL IV PRN (08:00)
[2018-06-27] MEDS ORDERED: HYDROmorphone INJ 2 MG/ML SYR/VIAL IV PRN (08:00)
[2018-06-27] MEDS ORDERED: ATROPINE SULFATE 0.1 MG/ML 5ML SYR IV PRN (08:00)
[2018-06-27] MEDS ORDERED: PHENYLEPHRINE 100MCG/ML 5ML SYR IV PRN (08:00)
[2018-06-27] MEDS ORDERED: FENTANYL CITRATE INJ 50 MCG/1 ML 2 ML VIAL ONE ×2 (11:42)
[2018-06-27] MEDS ORDERED: MIDAZOLAM HCL 1 MG/ML 2ML VIAL ONE (11:42)
[2018-06-27] MEDS ORDERED: BUPIVACAINE/EPINEPHRINE 0.5% MPF 1:200,000 30 ML VIAL ONE (12:01)
[2018-06-27] MEDS ORDERED: CEFAZOLIN SOD 1 GM VIAL ONE (12:01)
[2018-06-27 12:04] LABS: HEMATOCRIT 32.6 % (42-52); HEMOGLOBIN 9.4 g/dL (14.0-18.0); MEAN CELL VOLUME 73.4 fL (80-100); MEAN CORPUSCULAR HEMOGLOBIN 21.2 pg (25-34); MEAN CORPUSCULAR HGB CONC 28.8 g/dl (32-36); MEAN PLATELET VOLUME 9.4 fL (7.4-10.4); PLATELET COUNT 375 K/uL (130-400)
--- NOTE | 2018-06-27 12:06 | History & Physical Bridge Note ---
H&P Re-Evaluation Bridge Note: I have examined the patient, reviewed the History & Physical and in the interval since the performance of the History & Physical I have noted the following changes of clinical significance: No changes noted. discussed with patient options. discussed surgical repair and risks ( bleeding/infection/dvt/ pe/mi/cva/injury to other organs such as lungs/spleen/stomach/esophagus/liver etc...questions answered. will proceed with laparoscopic/possible open repair of large incarcerated hiatal hernia with surgery as needed.
[2018-06-27] MEDS ORDERED: EpHEDrine SULFATE 50MG/5ML SYR ONE (12:52)
[2018-06-27] MEDS ORDERED: PROPOFOL IV EMULSION 10 MG/ML 20 ML VIAL ONE (12:52)
[2018-06-27] MEDS ORDERED: ROCURONIUM BROMIDE 10 MG/ML 5 ML VIAL ONE ×2 (12:52→14:07)
[2018-06-27] MEDS ORDERED: HYDROmorphone INJ 2 MG/ML SYR/VIAL ONE (12:52)
[2018-06-27] MEDS ORDERED: DEXAMETHASONE SOD INJ 4 MG/ML VIAL ONE (12:52)
[2018-06-27] MEDS ORDERED: LARYING-O-JET KIT (LTA) ONE (12:52)
[2018-06-27] MEDS ORDERED: GLYCOPYRROLATE INJ 0.2 MG/ML VIAL ONE (12:52)
[2018-06-27] MEDS ORDERED: ONDANSETRON INJ 2 MG/ML 2 ML VIAL ONE (12:52)
[2018-06-27] MEDS ORDERED: LIDOCAINE HCL 2% 2 ML VIAL (20MG/ML) ONE (12:52)
[2018-06-27] MEDS ORDERED: NEOSTIGMINE METHYLSULFATE 5 MG/5 ML SYR ONE (12:52)
--- NOTE | 2018-06-27 14:02 | [facility] Post Operative Brief Note ---
Immediate Operative Summary Operative Date Jun 27, 2018. Pre-Operative Diagnosis Hiatal Hernia with gastric incarceration Post-Operative Diagnosis Same as preop Procedure(s) Performed Laparoscopic Hiatal Hernia Repair; gastropexy Surgeon Dr. Owens Gas Pumper Surgeon(s) Mina Bingham PA-C, Joni Bae PA-C Estimated Blood Loss 10 ml Findings Consistent with Post-Op Diagnosis Specimens none per Surgeon Anesthesia Type General Complication(s) none
[2018-06-27] MEDS ORDERED: METOCLOPRAMIDE HCL INJ 5 MG/ML 2 ML VIAL IV. STA (14:07)
[2018-06-27] MEDS ORDERED: MoRPHine SULFATE 2 MG/ML CARP IV PRN (14:15)
--- NOTE | 2018-06-27 14:28 | [facility] Operative Report ---
Operative Report Operative Date Jun 27, 2018. Pre-Operative Diagnosis Hiatal Hernia with gastric incarceration Post-Operative Diagnosis Same as preop Procedure(s) Performed Laparoscopic Hiatal Hernia Repair; gastropexy Surgeon Dr. Owens Material Handling Warehouse Supervisor Surgeon(s) Mina Bingham PA-C, Joni Bae PA-C Estimated Blood Loss 10 ml Specimens none per Surgeon Anesthesia Type General Complication(s) none Description of Procedure After informed consent was obtained the patient was taken to the operating room and placed in supine position. After successful intubation a Huizar catheter was placed and the abdomen was shaved and sterilely prepped and draped in usual fashion. A supraumbilical incision was made with an 11 blade scalpel and carried down through the soft tissues electrocautery. The anterior rectus fascia was opened using electrocautery and 2 #0 Vicryl stay sutures were placed. The peritoneum was elevated with hemostats and incised under direct vision with a Metzenbaum scissor. A finger sweep was performed to take down any underlying adhesions a 12 mm Mason trocar was placed. The abdomen was insufflated to 18 mmHg. The laparoscope was inserted into the abdomen and the abdomen was examined in 360. A subxiphoid 12 mm port and a left upper quadrant 5 mm port and a right upper quadrant 5 mm port and a right flank 5 mm port were placed under direct vision. The patient was placed in reverse Trendelenburg position. A liver retractor was used throughout the case to help with exposure. Once we elevated the left lobe liver we saw a moderate probably 5-6 cm hiatal hernia defect with almost 100% gastric incarceration. Basically the pylorus was right at the hiatus. We were able to use graspers and reduce the omentum and the majority of the stomach. We started along the lateral side and took down the hernia sac using the sonocision. We also came up along the right crew the diaphragm and continued to take down the hernia sac anteriorly till we met with what we have done from the lateral side. Eventually we were able to take down a very large hernia sac in 360. We had anesthesia advance a 50 Greenlandic bougie so that we could identify the esophagus. We continued to use primarily blunt dissection and small amounts of harmonic scalpel to free up adhesions and hernia sac. Once we did all of this the entire stomach was reduced with no tension upon it. We were able to come underneath the esophagus itself and identify the left crew the diaphragm. We closed the defect posteriorly with several stitches of 0- Surgidac with the Endo Stitch device. After we approximated the crew posteriorly we also reapproximated it anteriorly. We then removed the bougie and the repair looked good. It did not appear to be too tight or impinging upon the esophagus itself. The right crew the diaphragm was somewhat thinned out and very close to the vena cava and because of the appearance of this anatomy I decided not to do a right-sided gastropexy. I did use 0-Surgidac to pex the fundus of the stomach to the left crew the diaphragm. No other abnormalities were identified. There was adequate hemostasis at the end of the case. We did look around the lower portion of the abdomen briefly and did not see any other reason for his anemia. At this point the liver retractor and all of the trochars were removed. The abdomen was desufflated. The fascia of the camera port was closed using 0 Vicryl in figure of 8 fashion. All the wounds were irrigated and closed using 4 -0 Monocryl. Marcaine was injected around for postoperative analgesia and skin glue used as a dressing. The patient was awakened extubated transferred recovery in stable condition. My physician's assistants were present throughout the entire case. They helped with wound exposure. They helped with running the camera, liver retraction, and retraction of the stomach during my dissection. The also helped with wound closure and dressing placement at the end of the case. I attest to the content of the Intraoperative Record and any orders documented therein. Any exceptions are noted below.
--- NOTE | 2018-06-27 14:39 | Progress Note ---
Progress Note Date of Service Jun 27, 2018. Progress Note Pt off the floor when coming by to round so not seen. Looking at the chart he has his HH repair. Celiac markers still pending. The only additional GI workup recommended is capsule endoscopy which needs to be after recovery from surgery as an outpt. Further care of patient by primary team and surgery. Will sign off. Please call for further questions.
--- NOTE | 2018-06-27 14:48 | Anesthesiology Progress Note ---
Anesthesia Post Op Note Date & Time Jun 27, 2018 at 14:48 Vital Signs Pain Intensity: 0 Vital Signs Past 12 Hours Date Time Temp Pulse Resp B/P (MAP) Pulse Ox O2 Delivery O2 Flow Rate FiO2 06/27/18 14:35 62 12 117/80 100 Nasal Cannula 3 06/27/18 14:25 65 16 115/77 97 Oxymask 10 06/27/18 14:17 36.2 95 18 138/77 98 Oxymask 10 06/27/18 08:00 Room Air 06/27/18 07:05 36.7 50 16 95/57 (70) 98 Notes Mental Status: alert / awake / arousable, participated in evaluation Pt Amnestic to Procedure: Yes Nausea / Vomiting: adequately controlled Pain: adequately controlled Airway Patency, RR, SpO2: stable & adequate BP & HR: stable & adequate Hydration State: stable & adequate Anesthetic Complications: no major complications apparent
[2018-06-27] MEDS: ACETAMINOPHEN IV 1,000 MG in EMPTY BAG 0 ML IV SCH ×2 (16:34→22:31)
[2018-06-27] MEDS: ONDANSETRON INJ 2 MG/ML 2 ML VIAL IV. SCH ×2 (16:36→21:03)
[2018-06-27] MEDS: D5W AND 1/2NSS 1,000 ML IV SCH (17:34)
[2018-06-27] MEDS: METOCLOPRAMIDE HCL INJ 5 MG/ML 2 ML VIAL IV. SCH (21:41)
--- NOTE | 2018-06-27 23:01 | Progress Note ---
Subjective Date of Service: Jun 27, 2018. Subjective Patient seen prior to procedure at 10 am. Patient reports no new complaints. Review of Systems Constitutional: No fever Eyes: No worsening of vision Respiratory: No cough Cardiac: No chest pain Abdomen: No constipation Musculoskeletal: No joint pain Neurologic: No memory loss Psychiatric: No depression symptoms Heme: No abnormal bleeding/bruising Endo: No fatigue Skin: No rash All Other Systems: Reviewed and Negative Objective Vital Signs Date Time Temp Pulse Resp B/P (MAP) Pulse Ox O2 Delivery O2 Flow Rate FiO2 06/27/18 19:09 36.7 55 16 109/68 (82) 98 06/27/18 17:52 34.7 56 16 111/69 (83) 98 Nasal Cannula 3.0 06/27/18 16:51 36.6 62 16 107/67 (80) 98 Room Air 06/27/18 16:21 37.1 60 20 105/65 (78) 98 Nasal Cannula 3.0 06/27/18 15:50 36.7 63 16 114/69 (84) 97 Nasal Cannula 3.0 06/27/18 15:50 97 Nasal Cannula 3.0 06/27/18 15:50 97 Nasal Cannula 3.0 06/27/18 15:30 64 12 104/77 95 Nasal Cannula 3 06/27/18 15:15 62 16 120/73 95 Nasal Cannula 3 06/27/18 15:00 58 12 113/69 96 Nasal Cannula 3 06/27/18 14:45 36.4 56 12 119/76 98 Nasal Cannula 3 06/27/18 14:35 62 12 117/80 100 Nasal Cannula 3 06/27/18 14:25 65 16 115/77 97 Oxymask 10 06/27/18 14:17 36.2 95 18 138/77 98 Oxymask 10 06/27/18 08:00 Room Air 06/27/18 07:05 36.7 50 16 95/57 (70) 98 06/27/18 00:00 Room Air 06/26/18 23:15 36.7 53 18 98/71 (80) 96 Room Air Physical Exam Comments: General Appearance: WD/WN, no apparent distress Eyes: normal inspection, EOMI, sclerae normal ENT: normal ENT inspection, hearing grossly normal, pharynx normal Neck: supple, no adenopathy, no JVD, trachea midline Respiratory/Chest: chest non-tender, lungs clear, normal breath sounds, no respiratory distress, no accessory muscle use Cardiovascular: regular rate, rhythm, no edema, no gallop, no JVD, no murmur Abdomen: normal bowel sounds, non tender, soft, no organomegaly Extremities: normal range of motion, non-tender, normal inspection, no pedal edema, no calf tenderness, pelvis stable 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, no motor/sensory deficits, alert, normal mood/affect, oriented x 3 Skin: normal color, warm/dry, no rash Lymphatic: no adenopathy Laboratory Results Last 24 Hours Test 06/27/18 11:51 White Blood Count 7.90 K/uL Red Blood Count 4.44 M/uL Hemoglobin 9.4 g/dL Hematocrit 32.6 % Mean Corpuscular Volume 73.4 fL Mean Corpuscular Hemoglobin 21.2 pg Mean Corpuscular Hemoglobin Concent 28.8 g/dl Platelet Count 375 K/uL Mean Platelet Volume 9.4 fL Assessment and Plan 37 yo male with GI bleed, acute blood loss anemia - GI bleed with acute blood loss anemia hb 3.9 on admission, up to 9.1 on 06/24, above 9 today today and overall stable received 4 units total PRBC Protonix PO BID colonoscopy on 06/21 with no bleeding, normal ileum EGD showed large hiatal hernia, sliding, no ulcers or bleeding Dr. King would like to get outpatient small bowel capsule endoscopy once hiatal hernia fixed small bowel biopsy shows some increased subepithelial lymphocytes, can be seen with gluten sensitivity celiac markers are pending no melena, no signs of active bleeding GI would like to check nuclear medicine scan for Meckel's diverticulum: this was done today and was negative. Patient will have surgical correction of hiatal hernia today. - Large sliding hiatal hernia confirmed on GI series CT chest shows the same plan for OR Today to fix the hernia, he is at risk for volvulus - Iron deficiency: profound, ferritin was 2.7 received 5 days of venofer. follow up celiac panel should be discharged on oral iron supplementation - DVT prophylaxis: SCD due to bleed - Unknown psychiatric issues: was recently taken off of Depakote and BuSpar mood is stable
[2018-06-28] MEDS: ONDANSETRON INJ 2 MG/ML 2 ML VIAL IV. SCH ×3 (03:05→14:36)
[2018-06-28] MEDS: D5W AND 1/2NSS 1,000 ML IV SCH ×2 (03:08→13:11)
[2018-06-28 04:04] VITALS: BP 112/67; PULSE 52; TEMP 36.8; O2SAT 94
[2018-06-28] MEDS: METOCLOPRAMIDE HCL INJ 5 MG/ML 2 ML VIAL IV. SCH (05:54)
[2018-06-28] MEDS: ACETAMINOPHEN IV 1,000 MG in EMPTY BAG 0 ML IV SCH ×2 (05:58→14:34)
[2018-06-28 07:21] VITALS: BP 117/74; PULSE 66; TEMP 36.5; O2SAT 94
--- NOTE | 2018-06-28 08:09 | Surgery Progress Note ---
Subjective Date of Service: Jun 28, 2018. Pt. doing well post-op--minimal abdominal pain, no N/V. He is passing flatus. He is tolerating clear liquids and has ambulated in hallway. he denies lightheadedness or dizziness. Objective Vitals Date Time Temp Pulse Resp B/P (MAP) Pulse Ox O2 Delivery O2 Flow Rate FiO2 06/28/18 07:21 36.5 66 16 117/74 (88) 94 Room Air 06/28/18 04:04 36.8 52 16 112/67 (82) 94 Room Air 06/27/18 23:15 Room Air 06/27/18 22:58 36.6 54 16 103/64 (77) 96 Room Air 06/27/18 19:09 36.7 55 16 109/68 (82) 98 06/27/18 17:52 34.7 56 16 111/69 (83) 98 Nasal Cannula 3.0 06/27/18 16:51 36.6 62 16 107/67 (80) 98 Room Air 06/27/18 16:21 37.1 60 20 105/65 (78) 98 Nasal Cannula 3.0 06/27/18 15:50 36.7 63 16 114/69 (84) 97 Nasal Cannula 3.0 06/27/18 15:50 97 Nasal Cannula 3.0 06/27/18 15:50 97 Nasal Cannula 3.0 06/27/18 15:30 64 12 104/77 95 Nasal Cannula 3 06/27/18 15:15 62 16 120/73 95 Nasal Cannula 3 06/27/18 15:00 58 12 113/69 96 Nasal Cannula 3 06/27/18 14:45 36.4 56 12 119/76 98 Nasal Cannula 3 06/27/18 14:35 62 12 117/80 100 Nasal Cannula 3 06/27/18 14:25 65 16 115/77 97 Oxymask 10 06/27/18 14:17 36.2 95 18 138/77 98 Oxymask 10 06/27/18 08:00 Room Air Physical Exam General: + well developed, + well nourished, No distress CV: + RRR Pulmonary: + lungs clear, No accessory muscle use, No respiratory distress Abdomen: + pertinent finding (minimal distention; BS are hypoactive, minimal pain with palpation ) Extremities: No calf tenderness Neurologic: + alert & oriented x 3 Assessment & Plan 37 year old male with hiatal hernia -concern noted that this may have contributed to anemia/GI bleed -surgical correction performed on 06/27/18: -continue pain control measures -discussed with Dr Owens--ok to advance diet to full liquids; he will outline timeframe of when to advance further -encourage use of IS -encourage ambulation -H/H has been stable since transfusion given early this admission: -he has received a total of 4 units PRBCs (06/20 & 06/21) -Meckel scan performed 06/26/18 and was (-) today as -upper and lower endoscopies did not ascertain cause of anemia -plans noted for possible capsule endoscopy as outpt.
--- NOTE | 2018-06-28 10:15 | Discharge Instructions ---
Discharge Instructions Date of Service Jun 28, 2018. Admission Reason for Admission: Acute Blood Loss Anemia, Gi Bleed Discharge Discharge Diagnosis / Problem: Hiatal Hernia Discharge Goals Goal(s): Therapeutic intervention Activity Recommendations Activity Limitations: as noted below Lifting Limitations: no more than 10 pounds Shower/Bathe: no limitations 1. Do not lift objects heavier than 10 pounds until cleared to do so by Dr. Owens. 2. Do not advance diet further than soft foods until cleared to do so by Dr. Owens. Specifically no food that require chewing, breads, or meats. . Instructions / Follow-Up Instructions / Follow-Up 1. You may shower and clean incisions with soap and water. 2. Office appointment with Dr. Owens of [facility] Department of General Surgery in 2 week. Please call to schedule appointment. Current Hospital Diet Patient's current hospital diet: Full Liquid Diet Discharge Diet Recommended Diet: Full Liquid Diet (you may advance to soft diet only as discussed with Dr. Owens.) Procedures Procedures Performed: Laparoscopic Hiatal Hernia Repair; gastropexy Pending Studies Studies pending at discharge: no Medical Emergencies . Who to Call and When: Medical Emergencies: If at any time you feel your situation is an emergency, please call 911 immediately. . Non-Emergent Contact Non-Emergency issues call your: Surgeon Call Non-Emergent contact if: you have a fever, your pain is not controlled, wound has increased drainage . "Provider Documentation" section prepared by Mina Bingham. .
[2018-06-28] MEDS ORDERED: FERR1TAB62 PO (14:49)
[2018-06-28] MEDS ORDERED: DOCU-94 PO (14:49)
--- NOTE | 2018-06-28 14:54 | Discharge Instructions ---
Discharge Instructions Date of Service Jun 28, 2018. Admission Reason for Admission: Acute Blood Loss Anemia, Gi Bleed Discharge Discharge Diagnosis / Problem: Acute Blood loss Discharge Goals Goal(s): Decrease discomfort, Improve function Activity Recommendations Activity Limitations: as noted below Lifting Limitations: gradually increase as tolerated (as noted in the surgical discharge instructions) 1. Do not lift objects heavier than 10 pounds until cleared to do so by Dr. Owens. 2. Do not advance diet further than soft foods until cleared to do so by Dr. Owens. Specifically no food that require chewing, breads, or meats. . Instructions / Follow-Up Instructions / Follow-Up 1. You may shower and clean incisions with soap and water. 2. Office appointment with Dr. Owens of [facility] Department of General Surgery in 2 week. Please call to schedule appointment. Patient will need to follow Gastroenterology for an outpatient capsule endoscopy. Will continue on a full liquid diet. Current Hospital Diet Patient's current hospital diet: Full Liquid Diet Discharge Diet Recommended Diet: Full Liquid Diet Procedures Procedures Performed: Laparoscopic Hiatal Hernia Repair; gastropexy Pending Studies Studies pending at discharge: josé miguel Medical Emergencies . Who to Call and When: Medical Emergencies: If at any time you feel your situation is an emergency, please call 911 immediately. . Non-Emergent Contact Non-Emergency issues call your: Bank Credit Card Collection Clerk, Surgeon Call Non-Emergent contact if: you have any medication questions . . "Provider Documentation" section prepared by Jose Tran. .
[2018-06-28 15:16] VITALS: BP 117/74; PULSE 66; TEMP 36.5; O2SAT 94
--- NOTE | 2018-07-04 16:49 | PROGRESS NOTE ---
DATE: 06/26/2018 ADDENDUM The patient was seen in his room in the attendance of his retirement guards. The patient at the time of his encounter reported no abdominal pain, difficulty swallowing, or change in bowels. He had no complaints and no further questions prior to his scheduled surgery later that day.
--- NOTE | 2018-07-05 23:11 | Discharge Summary ---
Discharge Summary Date of Service Jun 28, 2018. Discharge Summary Admission Date: Jun 20, 2018 at 10:37 Discharge Date: Jun 28, 2018 Discharge Disposition: Home ([facility] facility) Principal Diagnosis: Acute upper GI bleed causing acute blood loss Medication Reconciliation New Medications: Docusate Sodium (Colace) 100 Mg Cap 1 CAP PO BID PRN for Constipation for 15 Days, #30 CAP Ferrous Sulfate (Ferrous Sulfate) 325 Mg Tab 1 TAB PO TID for 30 Days, #90 TAB 1 Refill Discharge Exam Review of Systems Constitutional: No fever Eyes: No worsening of vision Respiratory: No cough Cardiac: No chest pain Abdomen: No constipation Musculoskeletal: No joint pain Neurologic: No memory loss Psychiatric: No depression symptoms Heme: No abnormal bleeding/bruising Endo: No fatigue Skin: No rash All Other Systems: Reviewed and Negative Physical Exam Comments: General Appearance: WD/WN, no apparent distress Eyes: normal inspection, EOMI, sclerae normal ENT: normal ENT inspection, hearing grossly normal, pharynx normal Neck: supple, no adenopathy, no JVD, trachea midline Respiratory/Chest: chest non-tender, lungs clear, normal breath sounds, no respiratory distress, no accessory muscle use Cardiovascular: regular rate, rhythm, no edema, no gallop, no JVD, no murmur Abdomen: normal bowel sounds, non tender, soft, no organomegaly Extremities: normal range of motion, non-tender, normal inspection, no pedal edema, no calf tenderness, pelvis stable 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 King would like to get outpatient small bowel capsule endoscopy once hiatal hernia fixed small bowel biopsy shows some increased subepithelial lymphocytes, can be seen with gluten sensitivity celiac markers are pending no melena, no signs of active bleeding GI would like to check nuclear medicine scan for Meckel's diverticulum: this was done today and was negative. Patient had surgical correction of hiatal hernia and did not have significant complications. - Large sliding hiatal hernia confirmed on GI series CT chest shows the same Hernia was repaired, he is at risk for volvulus - Iron deficiency: profound, ferritin was 2.7 received 5 days of venofer. follow up celiac panel should be discharged on oral iron supplementation - DVT prophylaxis: SCD due to bleed - Unknown psychiatric issues: was recently taken off of Depakote and BuSpar mood is stable Total Time Spent: Greater than 30 minutes This includes examination of the patient, discharge planning, medication reconciliation, and communication with other providers. Discharge Instructions Please refer to the electronic Patient Visit Report (Discharge Instructions) for additional information. Follow-Up as noted on discharge instructions Additional Copies To [facility]
== END 2018-06-28 16:05 | disposition home or self-care (01) | DRG 327 ==
LOC: EDBD 08:37 → C.EDB 08:40 → C.2E 10:37 → ENRESERV 11:40 → CANRESERV 11:41 → ENRESERV 11:41 → C.MS4W 06-21 19:51 → ENRESERV 06-27 15:34 → C.MSN 06-27 15:58
PROVIDERS: ADMIT Internal Medicine; ATTEND Internal Medicine Sports Medicine
PROC: 0DB98ZX Excision of Duodenum, Via Natural or Artificial Opening Endoscopic, Diagnostic (ICD-10-PCS; principal; 2018-06-21 15:12)
PROC: 0DJD8ZZ Inspection of Lower Intestinal Tract, Via Natural or Artificial Opening Endoscopic (ICD-10-PCS; principal; 2018-06-21 15:12)
PROC: 0BQT4ZZ Repair Diaphragm, Percutaneous Endoscopic Approach (ICD-10-PCS; 2018-06-27)
PROC: 0DS64ZZ Reposition Stomach, Percutaneous Endoscopic Approach (ICD-10-PCS; 2018-06-27)
DX: K92.1 Melena (principal); K44.0 Diaphragmatic hernia with obstruction, without gangrene; K64.8 Other hemorrhoids; D50.0 Iron deficiency anemia secondary to blood loss (chronic); F17.200 Nicotine dependence, unspecified, uncomplicated